=== PATIENT | female | born 1950 | race Caucasian/White ===

== ENCOUNTER 2017-12-03 18:37 | Emergency (ER) | payer OTHER ==
[2017-12-03 18:55] VITALS: BMI 34.9
--- NOTE | 2017-12-03 19:30 | PDOC ---
History of Present Illness - General Chief Complaint: Injury Stated Complaint: FALL/HEAD INJURY Time Seen by Provider: 12/03/17 19:29 History Source: Patient Exam Limitations: No Limitations - History of Present Illness Initial Comments: 12/03/17 20:23 67F [facility] patient from [facility] with pmh of arterial thrombosis of extremities, dm2, gerd, htn, hypothyroidism, Left knee replacement on enoxaparin presents to the ED sent by jossie for evaluation of her head after she bumped it in the bathroom. No visible signs of trauma, no hematoma. Patient denies headache, nausea, vomiting, change in vision, fatigue. pcp: Fabiana Mena Past History - Past Medical History Allergies/Adverse Reactions: Allergies Allergy/AdvReac Type Severity Reaction Status Date / Time JESUS Inhibitors Allergy Intermediate Swelling Verified 12/03/17 18:55 [Jesus Inhibitors] codeine [Codeine] Allergy Intermediate Itching Verified 12/03/17 18:55 propoxyphene napsylate Allergy Intermediate Rash Verified 12/03/17 18:55 [From [facility]] lactose AdvReac Verified 12/03/17 18:55 METAL Allergy Severe Rash Uncoded 12/03/17 18:55 Home Medications: Ambulatory Orders Atenolol [Tenormin -] 25 mg PO DAILY #30 tablet 03/03/15 Furosemide [Lasix -] 40 mg PO DAILY #30 tablet 03/03/15 Levothyroxine [Synthroid -] 25 mcg PO DAILY #30 tablet 03/03/15 Loratadine [Claritin -] 10 mg PO DAILY #30 tablet 03/03/15 Cholecalciferol (Vitamin D3) [Vitamin D3] 2,000 unit PO DAILY 11/19/15 Gabapentin 300 mg PO BID 11/19/15 Insulin Pump/Infus. Set/Meter [Accu-Chek Combo System] 1 each MC ASDIR 11/19/15 Simvastatin [Zocor -] 20 mg PO HS 11/19/15 Docusate Sodium [Colace -] 100 mg PO BID 03/25/16 Brimonidine Tartrate/Timolol [Combigan 0.2%-0.5% Eye Drops] 1 drop OU BID Olopatadine HCl [Pazeo] 1 drop OU DAILY 07/04/16 Omeprazole 20 mg PO DAILY 07/04/16 Oxycodone HCl/Acetaminophen [Percocet 5-325 mg Tablet] 1 tab PO TID PRN MDD 4 Pantoprazole Sodium [Protonix -] 40 mg PO DAILY #30 tablet.ec 07/04/16 Potassium Chloride [Klor-Con M10] 10 meq PO DAILY 07/04/16 Sucralfate [Carafate -] 1 gm PO BID #30 tablet 07/04/16 Anemia: No Asthma: No Cancer: No Cardiac Disorders: No CVA: Yes (1993,2010 with LT sided residual weakness) COPD: No CHF: No Dementia: No Diabetes: Yes (uses insulin pump) GI Disorders: No Disorders: No HTN: Yes Hypercholesterolemia: Yes Liver Disease: No Seizures: No Thyroid Disease: Yes (hypothyroidism) - Surgical History Abdominal Surgery: Yes Appendectomy: No Cardiac Surgery: No Cholecystectomy: No Lung Surgery: No Neurologic Surgery: Yes (Arnold-Chiari Malformation Brain Sx X2 2003,2008) Orthopedic Surgery: Yes (B/L shoulder rotator cuff, Left Total Knee Replacement March 2016) - Immunization History Immunization Up to Date: Yes - Suicide/Smoking/Psychosocial Hx Smoking Status: No Smoking History: Never smoked Have you smoked in the past 12 months: No Number of Cigarettes Smoked Daily: 0 Information on smoking cessation initiated: No Hx Alcohol Use: No Drug/Substance Use Hx: No Substance Use Type: None Hx Substance Use Treatment: No Review of Systems - Review of Systems Able to Perform ROS?: Yes Is the patient limited Tajik proficient: No Constitutional: No: Symptoms Reported HEENTM: No: Symptoms Reported Respiratory: No: Symptoms reported Cardiac (ROS): No: Symptoms Reported ABD/GI: No: Symptoms Reported : No: Symptoms Reported Musculoskeletal: No: Symptoms Reported Integumentary: No: Symptoms Reported All Other Systems: Reviewed and Negative *Physical Exam - Vital Signs Last Vital Signs Temp Pulse Resp BP Pulse Ox 97.9 F 80 12 108/70 98 12/03/17 18:40 12/03/17 18:40 12/03/17 18:40 12/03/17 18:40 12/03/17 18:40 - Physical Exam General Appearance: Yes: Nourished, Appropriately Dressed. No: Apparent Distress HEENT: positive: EOMI, DENY, Normal ENT Inspection Respiratory/Chest: positive: Lungs Clear, Normal Breath Sounds. negative: Chest Tender, Respiratory Distress Cardiovascular: positive: Regular Rhythm, Regular Rate, S1, S2 Gastrointestinal/Abdominal: positive: Normal Bowel Sounds, Flat, Soft. negative : Tender Musculoskeletal: positive: Normal Inspection. negative: CVA Tenderness Extremity: positive: Normal Capillary Refill, Normal Inspection Integumentary: positive: Normal Color, Dry, Warm Neurologic: positive: Fully Oriented, Alert, Normal Mood/Affect Medical Decision Making - Medical Decision Making 12/03/17 21:47 1. No evidence of acute intracranial hemorrhage or acute skull fracture. No mass effects or hydrocephalus. 2. Status post suboccipital craniectomy and resection of the C1 posterior arch. Hypoattenuating extra-axial collection along the margins of the craniectomy as described above, without much mass effect, is essentially unchanged in size since the CT. Patient ok to DC *DC/Admit/Observation/Transfer Diagnosis at time of Disposition: Closed head injury - Discharge Dispostion Disposition: HOME Condition at time of disposition: Fair Admit: No - Referrals Referrals: Sascha Hilliard MD [Primary Care Provider] - - Patient Instructions Printed Discharge Instructions: DI for Closed Head Injury Additional Instructions: Come back to the ER for any new, worsening or concerning symptom such as fatigue , loss of consciousness, or weakness. Follow up with your PCp Dr. Hilliard within the next 3-4 days. - Post Discharge Activity
--- NOTE | 2017-12-03 20:31 | PDOC ---
Attending Attestation - HPI HPI: 12/03/17 20:43 The patient is a 67 year old female, from [facility], with a significant past medical history of diabetes mellitus, hypothyroidism, CVA, hypertension, anemia , who presents to the emergency department for evaluation s/p bumping her head in the bathroom prior to arrival. detention reports state the patient is currently on the blood thinner Enoxaparin secondary to a recent left knee replacement so she was sent to the ED for evaluation. detention reports deny any recent fall or loss of consciousness. She denies any blurry vision or double vision. She denies recent fevers, chills , headache or dizziness. She denies recent nausea, vomit, diarrhea or constipation. She denies recent chest pain or shortness of breath. Allergies: See nursing notes Primary Care Physician: Dr. Mena Documentation prepared by Christian Cheng, acting as medical scientific officer for Randy Guerra MD. <Christian Cheng - Last Filed: 12/03/17 20:43> - Resident Resident Name: Augusto Royal - ED Attending Attestation I have performed the following: I have examined & evaluated the patient, The case was reviewed & discussed with the resident, I agree w/resident's findings & plan, Exceptions are as noted - Physicial Exam PE: 12/03/17 21:58 *Physical Exam General Appearance: Yes: Appropriately Dressed. No: Apparent Distress, Intoxicated HEENT: positive: EOMI, DENY, Normal ENT Inspection, Normal Voice, TMs Normal, Pharynx Normal. negative: Pale Conjunctivae, Photophobia, Scleral Icterus (R), Scleral Icterus (L) Neck: positive: Trachea midline, Normal Thyroid, Supple. negative: Tender, Rigid, Carotid bruit, Stridor, Lymphadenopathy (R), Lymphadenopathy (L), Thyromegaly Respiratory/Chest: positive: Lungs Clear, Normal Breath Sounds. negative: Chest Tender, Respiratory Distress, Accessory Muscle Use, Labored Respiration, RES, Crackles, Rales, Rhonchi, Stridor, Wheezing, Dullness Cardiovascular: positive: Regular Rhythm, Regular Rate, S1, S2. negative: Edema , JVD, Murmur, Bradycardia, Tachycardia Vascular Pulses: Dorsalis-Pedis (R): 2+, Doralis-Pedis (L): 2+ Gastrointestinal/Abdominal: positive: Normal Bowel Sounds, Flat, Soft. negative : Tender, Organomegaly, Pulsatile Mass, Increased Bowel Sounds, Decreased BS, Distended, Guarding, Rebound, Hernia, Hepatomegaly, Spleenomegaly Lymphatic: negative: Adenopathy, Tenderness Musculoskeletal: positive: slight left knee swelling anteriorly, well-healed scar, clean and intact negative: CVA Tenderness, Decreased Range of Motion Extremity: positive: Normal Capillary Refill, Normal Inspection, Normal Range of Motion, Pelvis Stable. negative: Tender, Pedal Edema, Swelling, Erythema Integumentary: positive: Normal Color, Dry, Warm. negative: Cyanotic, Erythema , Jaundice, Rash Neurologic: positive: refrigeration installer II-XII NML intact, Fully Oriented, Alert, Normal Mood/ Affect, Motor Strength 5/5. negative: EOM Palsy, Facial Droop, Sensory Deficit - Medical Decision Making 12/03/17 22:00 pt treated and released <Randy Guerra - Last Filed: 12/03/17 22:00>
[2017-12-03 23:18] VITALS: BP 132/80; PULSE 82; TEMP 97.2
== END 2017-12-03 23:16 | disposition home or self-care (01) ==
LOC: JER 18:37
DX: S09.90XA Unspecified injury of head, initial encounter (principal); X58.XXXA Exposure to other specified factors, initial encounter; Y93.89 Activity, other specified; Y92.129 Unspecified place in nursing home as the place of occurrence of the external cause; I10 Essential (primary) hypertension; E11.9 Type 2 diabetes mellitus without complications; Z79.4 Long term (current) use of insulin; E78.00 Pure hypercholesterolemia, unspecified; E03.9 Hypothyroidism, unspecified
CPT/HCPCS: 70450-TC; 99282-25

== ENCOUNTER 2020-12-12 10:21 | Inpatient (IN) | payer OTHER ==
[2020-12-12] MEDS ORDERED: DEXAMETHASONE SOD PHOSPHATE 4 MG/1 ML VIAL IVPUSH ONE (11:00)
[2020-12-12] MEDS ORDERED: DEXAMETHASONE SOD PHOSPHATE 10 MG/1 ML VIAL ONE (11:02)
[2020-12-12] MEDS ORDERED: NYSTATIN 500,000 UNITS/5 ML SUSPENSION PO ONE (11:15)
[2020-12-12 11:44] LABS: VENOUS BASE EXCESS -6.9 mmol/L (-2-2); VENOUS PCO2 45.2 mmHg (38-52); VENOUS PH 7.263 (7.310-7.410)
[2020-12-12 11:46] LABS: BASO % 0.3 % (0-2.0); HEMATOCRIT 37.6 % (32.4-45.2); HEMOGLOBIN 12.6 GM/dL (10.7-15.3); LYMPH % 9.1 % (8-40); MCH 29.2 pg (25.7-33.7); MCHC 33.5 g/dl (32.0-36.0); MEAN CELL VOLUME 87.1 fl (80-96); MEAN PLT VOLUME 9.5 fl (7.5-11.1); MONO % 5.6 % (3.8-10.2); PLATELET COUNT 225 K/MM3 (134-434); RBC 4.32 M/mm3 (3.60-5.2); RDW 14.7 % (11.6-15.6); WHITE BLOOD COUNT 6.4 K/mm3 (4.0-10.0)
[2020-12-12 11:54] LABS: LACTIC ACID 2.9 mmol/L (0.4-2.0)
[2020-12-12 12:07] LABS: INR 1.41 (0.83-1.09); PROTHROMBIN TIME (PATIENT) 17.2 SEC (9.7-13.0)
[2020-12-12 12:10] LABS: ACTIVATED PTT 41.5 SECONDS (25.2-36.5)
[2020-12-12 12:13] LABS: CHLORIDE 106 mmol/L (98-107); SODIUM 137 mmol/L (136-145)
[2020-12-12 12:15] LABS: CALCIUM 8.8 mg/dL (8.5-10.1); CO2 19 mmol/L (21-32)
[2020-12-12 12:16] LABS: ALBUMIN 3.2 g/dl (3.4-5.0); BLOOD UREA NITROGEN 47.4 mg/dL (7-18)
[2020-12-12 12:18] LABS: BILIRUBIN,DIRECT 0.1 mg/dL (0.0-0.2); SGPT/ALT 43 U/L (13-61)
[2020-12-12] MEDS ORDERED: SODIUM CHLORIDE 500 ML IV STA ×3 (12:18→15:24)
[2020-12-12 12:19] LABS: CREATININE 2.6 mg/dL (0.55-1.3); SGOT/AST 127 U/L (15-37)
[2020-12-12 12:20] LABS: BILIRUBIN,TOTAL 0.6 mg/dL (0.2-1)
[2020-12-12 12:21] LABS: ALK PHOS 76 U/L (45-117)
[2020-12-12 12:24] LABS: TOT PROT 8.1 g/dl (6.4-8.2)
[2020-12-12 12:55] LABS: ANION GAP 12 MMOL/L (8-16); GLUCOSE,RANDOM 521 mg/dL (74-106); LDH 1107 U/L (84-246); POTASSIUM 6.4 mmol/L (3.5-5.1)
[2020-12-12] MEDS ORDERED: INSULIN REGULAR HUMAN 100 UNITS/ML *VIAL SQ ONE (13:01)
[2020-12-12 13:26] LABS: EPI CELLS >36 /uL (0-25.1); HYALINE CASTS 4 /uL (0-3.1); URINE APPEARANCE TURBID; URINE BACTERIA 690 /uL (0-1359); URINE BILIRUBIN NEGATIVE (NEGATIVE); URINE COLOR YELLOW; URINE GLUCOSE (UA) 3+ (NEGATIVE); URINE KETONE 1+ (NEGATIVE); URINE LEUK ESTERASE 1+ (NEGATIVE); URINE NITRITE NEGATIVE (NEGATIVE); URINE PROTEIN 2+ (NEGATIVE); URINE RBC 14 /uL (0-23.9); URINE UROBILINOGEN 0.2 mg/dL (0.2-1.0); URINE WBC 404 /uL (0-25.8)
[2020-12-12] MEDS ORDERED: oxyCODONE HCL 5 MG TABLET PO ONE (13:42)
[2020-12-12] MEDS ORDERED: ACETAMINOPHEN 325 MG TABLET (FP) PO ONE (13:42)
[2020-12-12] MEDS ORDERED: ACETAMINOPHEN 325 MG TABLET (FP) ONE (14:03)
[2020-12-12] MEDS ORDERED: oxyCODONE HCL 5 MG TABLET ONE (14:03)
[2020-12-12 14:27] LABS: YEAST NON SEEN (NEGATIVE)
[2020-12-12] MEDS ORDERED: ALBUTEROL SO4 HFA INHALER IH ONE ×2 (16:23→20:56)
[2020-12-12 16:30] LABS: POTASSIUM 4.9 mmol/L (3.5-5.1)
[2020-12-12 16:33] LABS: BLOOD UREA NITROGEN 46.4 mg/dL (7-18)
[2020-12-12] MEDS: ALBUTEROL SO4 HFA INHALER IH SCH ×2 (16:33→21:00)
[2020-12-12 16:36] LABS: CREATININE 2.4 mg/dL (0.55-1.3)
[2020-12-12 16:38] LABS: BILIRUBIN,TOTAL 0.4 mg/dL (0.2-1); TOT PROT 7.6 g/dl (6.4-8.2)
[2020-12-12 16:47] LABS: LACTIC ACID 3.3 mmol/L (0.4-2.0)
[2020-12-12] MEDS: INSULIN SLIDING SCALE (NOVOLOG) 1 VIAL SQ SCH ×2 (17:00→23:25)
[2020-12-12] MEDS ORDERED: LORazepam 2 MG/ML SDV VIAL IVPUSH ONE (20:52)
[2020-12-12] MEDS ORDERED: morphine CARPU-JECT 2 MG/1 ML DISP.SYRIN IM PRN (20:52)
[2020-12-12 21:48] LABS: ARTERIAL BLD GAS O2 SATURATION 95.4 mmHg (95-98); ARTERIAL BLOOD GAS BASE EXCESS -11.5 mmol/L (-2-2); ARTERIAL BLOOD GAS PO2 89.3 mmHg (80-100); ARTERIAL BLOOD GAS pH 7.233 (7.350-7.450)
[2020-12-12 21:52] LABS: ALLENS TEST POSITIVE
[2020-12-12 21:53] LABS: VENT RATE 14
[2020-12-12] MEDS: ATORVASTATIN CA 10 MG TABLET (FP) PO SCH (23:24)
[2020-12-12] MEDS: HEPARIN NA (PORCINE) 5,000 UNITS/ML 1ML VIAL SQ SCH (23:24)
[2020-12-12] MEDS: GABAPENTIN 300 MG CAPSULE PO SCH (23:25)
[2020-12-12] MEDS: BUDESONIDE/FORMETEROL FUMARATE 160/4.5 mcg INHALER IH SCH (23:38)
[2020-12-13] MEDS: LORazepam 2 MG/ML SDV VIAL IVPUSH ONE ×2 (01:14→01:16)
[2020-12-13] MEDS ORDERED: LORazepam 2 MG/ML SDV VIAL IVPUSH ONE (05:48)
[2020-12-13] MEDS: INSULIN SLIDING SCALE (NOVOLOG) 1 VIAL SQ SCH ×4 (06:22→21:52)
[2020-12-13] MEDS: HEPARIN NA (PORCINE) 5,000 UNITS/ML 1ML VIAL SQ SCH ×3 (06:23→21:52)
[2020-12-13 07:21] LABS: BASO % 0.5 % (0-2.0); HEMATOCRIT 34.6 % (32.4-45.2); HEMOGLOBIN 11.4 GM/dL (10.7-15.3); LYMPH % 6.1 % (8-40); MCH 28.5 pg (25.7-33.7); MEAN CELL VOLUME 86.5 fl (80-96); MEAN PLT VOLUME 9.4 fl (7.5-11.1); NEUT % 88.4 % (42.8-82.8); PLATELET COUNT 244 K/MM3 (134-434); RDW 14.9 % (11.6-15.6); WHITE BLOOD COUNT 8.8 K/mm3 (4.0-10.0)
[2020-12-13 07:38] LABS: CHLORIDE 116 mmol/L (98-107); POTASSIUM 3.9 mmol/L (3.5-5.1); SODIUM 144 mmol/L (136-145)
[2020-12-13 07:59] LABS: ALBUMIN 2.6 g/dl (3.4-5.0); BLOOD UREA NITROGEN 43.5 mg/dL (7-18)
[2020-12-13 08:00] LABS: ANION GAP 12 MMOL/L (8-16); CO2 17 mmol/L (21-32)
[2020-12-13 08:01] LABS: CALCIUM 8.5 mg/dL (8.5-10.1); MAGNESIUM 2.6 mg/dL (1.8-2.4); PHOSPHOROUS 2.7 mg/dL (2.5-4.9); SGOT/AST 92 U/L (15-37); SGPT/ALT 34 U/L (13-61)
[2020-12-13 08:03] LABS: TOT PROT 6.8 g/dl (6.4-8.2)
[2020-12-13 08:04] LABS: ALK PHOS 78 U/L (45-117)
[2020-12-13 08:07] LABS: BILIRUBIN,TOTAL 0.7 mg/dL (0.2-1)
[2020-12-13 08:57] LABS: GLUCOSE,RANDOM 478 mg/dL (74-106)
[2020-12-13] MEDS: ALBUTEROL SO4 HFA INHALER IH SCH ×4 (09:00→21:53)
[2020-12-13] MEDS ORDERED: INSULIN (NOVOLOG) ASPART 100 UNITS/ML 10ML VIAL SQ ONE (09:30)
[2020-12-13] MEDS ORDERED: ENOXAPARIN NA (PORCINE) 40 MG/0.4 ML DISP.SYRIN SQ SCH (10:00)
[2020-12-13] MEDS: ATENOLOL 25 MG TABLET (FP) PO SCH (11:57)
[2020-12-13] MEDS: FUROSEMIDE 40 MG TABLET (FP) PO SCH (11:57)
[2020-12-13] MEDS: GABAPENTIN 300 MG CAPSULE PO SCH ×2 (11:57→21:52)
[2020-12-13] MEDS: LEVOTHYROXINE NA 25 MCG TABLET (FP) PO SCH (11:58)
[2020-12-13] MEDS: BUDESONIDE/FORMETEROL FUMARATE 160/4.5 mcg INHALER IH SCH ×2 (12:02→21:54)
[2020-12-13] MEDS: DEXAMETHASONE SOD PHOSPHATE 4 MG/1 ML VIAL IVPUSH SCH (13:10)
[2020-12-13 15:25] LABS: ANISOCYTOSIS 0; MACROCYTOSIS 0; PLATELET ESTIMATE NORMAL
[2020-12-13] MEDS ORDERED: SODIUM CHLORIDE 1,000 ML IV SCH (18:00)
[2020-12-13] MEDS ORDERED: LIDOCAINE 5% TOPICAL PATCH TP ONE (21:14)
[2020-12-13] MEDS: ATORVASTATIN CA 10 MG TABLET (FP) PO SCH (21:52)
[2020-12-13] MEDS: INSULIN (LEVEMIR) 100 UNITS/ML UNITS SQ SCH (21:53)
[2020-12-13] MEDS: LIDOCAINE PATCH REMOVAL MC SCH (23:59)
[2020-12-14] MEDS: HEPARIN NA (PORCINE) 5,000 UNITS/ML 1ML VIAL SQ SCH ×3 (07:04→22:17)
[2020-12-14] MEDS: INSULIN SLIDING SCALE (NOVOLOG) 1 VIAL SQ SCH ×4 (07:04→22:20)
[2020-12-14] MEDS: INSULIN (LEVEMIR) 100 UNITS/ML UNITS SQ SCH ×2 (07:04→22:18)
[2020-12-14] MEDS: DEXAMETHASONE SOD PHOSPHATE 4 MG/1 ML VIAL IVPUSH SCH (10:43)
[2020-12-14] MEDS: ATENOLOL 25 MG TABLET (FP) PO SCH (10:43)
[2020-12-14] MEDS: GABAPENTIN 300 MG CAPSULE PO SCH ×2 (10:43→22:19)
[2020-12-14] MEDS: LEVOTHYROXINE NA 25 MCG TABLET (FP) PO SCH (10:43)
[2020-12-14] MEDS: FUROSEMIDE 40 MG TABLET (FP) PO SCH (10:43)
[2020-12-14] MEDS: ALBUTEROL SO4 HFA INHALER IH SCH ×4 (10:44→22:18)
[2020-12-14] MEDS: BUDESONIDE/FORMETEROL FUMARATE 160/4.5 mcg INHALER IH SCH ×2 (10:44→22:20)
[2020-12-14] MEDS ORDERED: TOCILIZUMAB (ACTEMRA) 200 MG/10 ML VIAL IVPB ONE (11:15)
[2020-12-14 11:22] LABS: BASO % 0.5 % (0-2.0); HEMATOCRIT 35.1 % (32.4-45.2); HEMOGLOBIN 11.9 GM/dL (10.7-15.3); MCH 28.8 pg (25.7-33.7); MEAN CELL VOLUME 84.7 fl (80-96); MEAN PLT VOLUME 8.8 fl (7.5-11.1); MONO % 8.1 % (3.8-10.2); NEUT % 87.4 % (42.8-82.8); PLATELET COUNT 319 K/MM3 (134-434); RBC 4.14 M/mm3 (3.60-5.2); RDW 14.9 % (11.6-15.6); WHITE BLOOD COUNT 14.4 K/mm3 (4.0-10.0)
[2020-12-14] MEDS ORDERED: TOCILIZUMAB 400 MG, TOCILIZUMAB 200 MG, TOCILIZUMAB 50 MG in SODIUM CHLORIDE 67.5 ML IVPB ONE (12:00)
[2020-12-14 12:37] LABS: CHLORIDE 125 mmol/L (98-107); POTASSIUM 4.1 mmol/L (3.5-5.1); SODIUM 154 mmol/L (136-145)
[2020-12-14 12:53] LABS: ANISOCYTOSIS 0; MACROCYTOSIS 0; OVALOCYTE 1+; PLATELET ESTIMATE NORMAL
[2020-12-14] MEDS: oxyCODONE HCL 5 MG TABLET PO PRN ×2 (16:12→22:18)
[2020-12-14] MEDS: ACETAMINOPHEN 325 MG TABLET (FP) PO PRN (16:14)
[2020-12-14 17:44] LABS: POTASSIUM 3.7 mmol/L (3.5-5.1)
[2020-12-14 18:04] LABS: BLOOD UREA NITROGEN 50.4 mg/dL (7-18); CREATININE 1.6 mg/dL (0.55-1.3)
[2020-12-14] MEDS ORDERED: SODIUM CHLORIDE 0.45% 1,000 ML IV SCH (19:00)
[2020-12-14] MEDS: LIDOCAINE PATCH REMOVAL MC SCH (22:18)
[2020-12-14] MEDS: ATORVASTATIN CA 10 MG TABLET (FP) PO SCH (22:19)
[2020-12-14] MEDS ORDERED: PT OWN MED DRAWER 7, Y5N ONE (22:43)
[2020-12-15] MEDS: INSULIN SLIDING SCALE (NOVOLOG) 1 VIAL SQ SCH ×4 (07:02→22:18)
[2020-12-15] MEDS: HEPARIN NA (PORCINE) 5,000 UNITS/ML 1ML VIAL SQ SCH ×3 (07:02→22:10)
[2020-12-15] MEDS: INSULIN (LEVEMIR) 100 UNITS/ML UNITS SQ SCH ×2 (07:02→22:16)
[2020-12-15 08:09] LABS: BASO % 0.3 % (0-2.0); EOS % 0.1 % (0-4.5); HEMATOCRIT 33.4 % (32.4-45.2); LYMPH % 5.9 % (8-40); MCH 28.1 pg (25.7-33.7); MEAN CELL VOLUME 85.2 fl (80-96); MEAN PLT VOLUME 9.3 fl (7.5-11.1); MONO % 9.2 % (3.8-10.2); NEUT % 84.5 % (42.8-82.8); PLATELET COUNT 299 K/MM3 (134-434); RBC 3.92 M/mm3 (3.60-5.2); RDW 14.8 % (11.6-15.6); WHITE BLOOD COUNT 11.6 K/mm3 (4.0-10.0)
[2020-12-15 08:44] LABS: ALBUMIN 2.6 g/dl (3.4-5.0); BILIRUBIN,TOTAL 0.5 mg/dL (0.2-1); BLOOD UREA NITROGEN 49.9 mg/dL (7-18); CREATININE 1.5 mg/dL (0.55-1.3); MAGNESIUM 2.2 mg/dL (1.8-2.4); POTASSIUM 3.8 mmol/L (3.5-5.1); TOT PROT 7.2 g/dl (6.4-8.2)
[2020-12-15] MEDS: ATENOLOL 25 MG TABLET (FP) PO SCH (09:53)
[2020-12-15] MEDS: ALBUTEROL SO4 HFA INHALER IH SCH ×4 (09:53→20:30)
[2020-12-15] MEDS: DEXAMETHASONE SOD PHOSPHATE 4 MG/1 ML VIAL IVPUSH SCH (09:53)
[2020-12-15] MEDS: LEVOTHYROXINE NA 25 MCG TABLET (FP) PO SCH (09:53)
[2020-12-15] MEDS: GABAPENTIN 300 MG CAPSULE PO SCH ×2 (09:53→22:18)
[2020-12-15] MEDS: BUDESONIDE/FORMETEROL FUMARATE 160/4.5 mcg INHALER IH SCH ×2 (09:54→23:27)
[2020-12-15 10:06] LABS: EPI CELLS 18 /uL (0-25.1); HYALINE CASTS 1 /uL (0-3.1); URINE APPEARANCE CLEAR; URINE BACTERIA 5871 /uL (0-1359); URINE BILIRUBIN NEGATIVE (NEGATIVE); URINE COLOR YELLOW; URINE GLUCOSE (UA) 2+ (NEGATIVE); URINE KETONE NEGATIVE (NEGATIVE); URINE LEUK ESTERASE NEGATIVE (NEGATIVE); URINE NITRITE NEGATIVE (NEGATIVE); URINE PROTEIN 1+ (NEGATIVE); URINE UROBILINOGEN 0.2 mg/dL (0.2-1.0); URINE WBC 14 /uL (0-25.8)
[2020-12-15 11:46] LABS: ANISOCYTOSIS 2+; MACROCYTOSIS 0; OVALOCYTE 2+; PLATELET ESTIMATE NORMAL
[2020-12-15] MEDS ORDERED: DEXTROSE 5%-WATER - 1,000 ML IV SCH (14:45)
[2020-12-15] MEDS ORDERED: REMDESIVIR 200 MG in SODIUM CHLORIDE 210 ML IVPB ONE (15:00)
[2020-12-15] MEDS: DEXTROSE 5%-WATER - 1,000 ML IV SCH (15:14)
[2020-12-15] MEDS ORDERED: LORazepam 2 MG/ML SDV VIAL IVPUSH ONE (22:03)
[2020-12-15] MEDS: LIDOCAINE PATCH REMOVAL MC SCH (22:17)
[2020-12-15] MEDS: ATORVASTATIN CA 10 MG TABLET (FP) PO SCH (22:17)
[2020-12-15] MEDS: ACETAMINOPHEN 325 MG TABLET (FP) PO PRN (22:19)
[2020-12-16] MEDS: HEPARIN NA (PORCINE) 5,000 UNITS/ML 1ML VIAL SQ SCH ×2 (06:54→13:08)
[2020-12-16] MEDS: INSULIN (LEVEMIR) 100 UNITS/ML UNITS SQ SCH ×2 (06:54→21:54)
[2020-12-16] MEDS: INSULIN SLIDING SCALE (NOVOLOG) 1 VIAL SQ SCH ×4 (06:55→21:54)
[2020-12-16 07:50] LABS: BASO % 0.2 % (0-2.0); HEMOGLOBIN 11.3 GM/dL (10.7-15.3); LYMPH % 5.3 % (8-40); MCH 28.5 pg (25.7-33.7); MCHC 33.1 g/dl (32.0-36.0); MEAN CELL VOLUME 85.9 fl (80-96); MEAN PLT VOLUME 9.3 fl (7.5-11.1); MONO % 6.8 % (3.8-10.2); NEUT % 87.7 % (42.8-82.8); PLATELET COUNT 276 K/MM3 (134-434); RBC 3.96 M/mm3 (3.60-5.2); RDW 14.9 % (11.6-15.6); WHITE BLOOD COUNT 9.8 K/mm3 (4.0-10.0)
[2020-12-16 09:09] LABS: POTASSIUM 3.7 mmol/L (3.5-5.1)
[2020-12-16 09:11] LABS: ALBUMIN 2.5 g/dl (3.4-5.0); CALCIUM 8.2 mg/dL (8.5-10.1)
[2020-12-16 09:12] LABS: BLOOD UREA NITROGEN 32.5 mg/dL (7-18); MAGNESIUM 1.8 mg/dL (1.8-2.4)
[2020-12-16 09:15] LABS: BILIRUBIN,TOTAL 0.6 mg/dL (0.2-1); CREATININE 1.3 mg/dL (0.55-1.3); TOT PROT 6.3 g/dl (6.4-8.2)
[2020-12-16] MEDS: ALBUTEROL SO4 HFA INHALER IH SCH ×4 (09:20→21:55)
[2020-12-16] MEDS: DEXAMETHASONE SOD PHOSPHATE 4 MG/1 ML VIAL IVPUSH SCH (09:20)
[2020-12-16] MEDS: ATENOLOL 25 MG TABLET (FP) PO SCH (09:20)
[2020-12-16] MEDS: BUDESONIDE/FORMETEROL FUMARATE 160/4.5 mcg INHALER IH SCH ×2 (09:20→21:55)
[2020-12-16] MEDS: GABAPENTIN 300 MG CAPSULE PO SCH ×2 (09:20→21:49)
[2020-12-16] MEDS: LEVOTHYROXINE NA 25 MCG TABLET (FP) PO SCH (09:20)
[2020-12-16 12:16] LABS: ANISOCYTOSIS 1+; MACROCYTOSIS 0; OVALOCYTE 1+; PLATELET ESTIMATE NORMAL; TEAR DROP CELLS 1+
[2020-12-16] MEDS: DEXTROSE 5%-WATER - 1,000 ML IV SCH (15:00)
[2020-12-16] MEDS: REMDESIVIR 100 MG in SODIUM CHLORIDE 230 ML IVPB SCH (16:44)
[2020-12-16] MEDS: APIXABAN 5 MG TABLET PO SCH (21:49)
[2020-12-16] MEDS: ATORVASTATIN CA 10 MG TABLET (FP) PO SCH (21:49)
[2020-12-16] MEDS: LORazepam 0.5 MG TABLET PO PRN (23:30)
[2020-12-17] MEDS: LORazepam 0.5 MG TABLET PO PRN ×2 (05:50→23:44)
[2020-12-17] MEDS: INSULIN SLIDING SCALE (NOVOLOG) 1 VIAL SQ SCH ×4 (07:19→21:09)
[2020-12-17] MEDS: INSULIN (LEVEMIR) 100 UNITS/ML UNITS SQ SCH ×2 (07:19→21:08)
[2020-12-17] MEDS ORDERED: PT OWN MED DRAWER 7, Y5N ONE (10:01)
[2020-12-17] MEDS: DEXAMETHASONE SOD PHOSPHATE 4 MG/1 ML VIAL IVPUSH SCH (10:02)
[2020-12-17] MEDS: BUDESONIDE/FORMETEROL FUMARATE 160/4.5 mcg INHALER IH SCH ×2 (10:03→21:21)
[2020-12-17] MEDS: APIXABAN 5 MG TABLET PO SCH ×2 (10:03→21:07)
[2020-12-17] MEDS: GABAPENTIN 300 MG CAPSULE PO SCH ×2 (10:03→21:07)
[2020-12-17] MEDS: ATENOLOL 25 MG TABLET (FP) PO SCH (10:03)
[2020-12-17] MEDS: LEVOTHYROXINE NA 25 MCG TABLET (FP) PO SCH (10:03)
[2020-12-17] MEDS: DEXTROSE 5%-WATER - 1,000 ML IV SCH (10:17)
[2020-12-17 11:43] LABS: BASO % 0.1 % (0-2.0); EOS % 0.2 % (0-4.5); HEMATOCRIT 35.6 % (32.4-45.2); HEMOGLOBIN 11.8 GM/dL (10.7-15.3); MCH 28.5 pg (25.7-33.7); MCHC 33.2 g/dl (32.0-36.0); MEAN CELL VOLUME 85.9 fl (80-96); MEAN PLT VOLUME 9.3 fl (7.5-11.1); MONO % 3.7 % (3.8-10.2); PLATELET COUNT 236 K/MM3 (134-434); RBC 4.15 M/mm3 (3.60-5.2); RDW 14.5 % (11.6-15.6); WHITE BLOOD COUNT 6.7 K/mm3 (4.0-10.0)
[2020-12-17 12:01] LABS: CHLORIDE 107 mmol/L (98-107); SODIUM 139 mmol/L (136-145)
[2020-12-17 12:03] LABS: ALBUMIN 2.4 g/dl (3.4-5.0); CALCIUM 8.1 mg/dL (8.5-10.1); CO2 23 mmol/L (21-32); GLUCOSE,RANDOM 337 mg/dL (74-106); MAGNESIUM 1.5 mg/dL (1.8-2.4)
[2020-12-17 12:07] LABS: CREATININE 1.2 mg/dL (0.55-1.3); SGOT/AST 74 U/L (15-37); SGPT/ALT 36 U/L (13-61)
[2020-12-17 12:08] LABS: BILIRUBIN,TOTAL 0.6 mg/dL (0.2-1); TOT PROT 6.1 g/dl (6.4-8.2)
[2020-12-17 12:09] LABS: ALK PHOS 163 U/L (45-117)
[2020-12-17 12:19] LABS: ANION GAP 9 MMOL/L (8-16)
[2020-12-17 12:26] LABS: POTASSIUM 2.9 mmol/L (3.5-5.1)
[2020-12-17] MEDS: KCL 10 MEQ IVPB 10 MEQ/100 ML INFUS.BAG IVPB SCH ×2 (12:35→14:21)
[2020-12-17] MEDS ORDERED: POTASSIUM CHLORIDE TABS 20 MEQ TABLET.ER (FP) PO ONE (12:45)
[2020-12-17] MEDS ORDERED: MAGNESIUM SULF 50% (8.12 MEQ/2 ML-1 GM VIAL) IVPB ONE (13:51)
[2020-12-17] MEDS ORDERED: MAGNESIUM OXIDE 400 MG TABLET (FP) PO ONE (13:56)
[2020-12-17] MEDS: ALBUTEROL SO4 HFA INHALER IH SCH ×3 (13:59→21:08)
[2020-12-17 14:39] LABS: ANISOCYTOSIS 1+; MACROCYTOSIS 0; OVALOCYTE 1+; PLATELET ESTIMATE NORMAL; TEAR DROP CELLS 1+
[2020-12-17] MEDS: REMDESIVIR 100 MG in SODIUM CHLORIDE 230 ML IVPB SCH (16:04)
[2020-12-17] MEDS: POTASSIUM CHLORIDE 20 MEQ in DEXTROSE 5%-WATER - 1,000 ML IV SCH (17:15)
[2020-12-17] MEDS: ATORVASTATIN CA 10 MG TABLET (FP) PO SCH (21:08)
[2020-12-17] MEDS: oxyCODONE HCL 5 MG TABLET PO PRN (23:56)
[2020-12-18] MEDS: POTASSIUM CHLORIDE 20 MEQ in DEXTROSE 5%-WATER - 1,000 ML IV SCH ×3 (04:15→17:11)
[2020-12-18] MEDS: ACETAMINOPHEN 325 MG TABLET (FP) PO PRN (05:18)
[2020-12-18] MEDS: oxyCODONE HCL 5 MG TABLET PO PRN (06:02)
[2020-12-18] MEDS: INSULIN SLIDING SCALE (NOVOLOG) 1 VIAL SQ SCH ×4 (06:38→21:21)
[2020-12-18] MEDS: INSULIN (LEVEMIR) 100 UNITS/ML UNITS SQ SCH ×2 (06:38→21:21)
[2020-12-18 06:50] LABS: BASO % 0.1 % (0-2.0); EOS % 0.6 % (0-4.5); HEMATOCRIT 37.7 % (32.4-45.2); HEMOGLOBIN 12.7 GM/dL (10.7-15.3); LYMPH % 7.1 % (8-40); MCH 28.4 pg (25.7-33.7); MCHC 33.7 g/dl (32.0-36.0); MEAN CELL VOLUME 84.3 fl (80-96); MEAN PLT VOLUME 9.3 fl (7.5-11.1); MONO % 5.4 % (3.8-10.2); NEUT % 86.8 % (42.8-82.8); PLATELET COUNT 263 K/MM3 (134-434); RBC 4.47 M/mm3 (3.60-5.2); RDW 14.5 % (11.6-15.6); WHITE BLOOD COUNT 6.9 K/mm3 (4.0-10.0)
[2020-12-18 07:05] LABS: CHLORIDE 108 mmol/L (98-107); POTASSIUM 3.4 mmol/L (3.5-5.1); SODIUM 140 mmol/L (136-145)
[2020-12-18 07:10] LABS: ALBUMIN 2.5 g/dl (3.4-5.0); ANION GAP 7 MMOL/L (8-16); BLOOD UREA NITROGEN 21.2 mg/dL (7-18); CO2 25 mmol/L (21-32); GLUCOSE,RANDOM 236 mg/dL (74-106)
[2020-12-18 07:11] LABS: MAGNESIUM 2.1 mg/dL (1.8-2.4)
[2020-12-18 07:14] LABS: BILIRUBIN,TOTAL 0.7 mg/dL (0.2-1); CREATININE 1.1 mg/dL (0.55-1.3); PHOSPHOROUS 3.3 mg/dL (2.5-4.9); SGOT/AST 60 U/L (15-37); SGPT/ALT 37 U/L (13-61); TOT PROT 6.4 g/dl (6.4-8.2)
[2020-12-18 07:17] LABS: ALK PHOS 166 U/L (45-117)
[2020-12-18] MEDS ORDERED: PT OWN MED DRAWER 7, Y5N ONE (07:46)
[2020-12-18] MEDS ORDERED: INSULIN (NOVOLOG) ASPART 100 UNITS/ML 10ML VIAL ONE ×2 (07:46→12:12)
[2020-12-18] MEDS ORDERED: INSULIN (LEVEMIR) 100 UNITS/ML UNITS SQ ONE (07:47)
[2020-12-18] MEDS ORDERED: POTASSIUM CHLORIDE TABS 20 MEQ TABLET.ER (FP) PO ONE (08:37)
[2020-12-18] MEDS: ALBUTEROL SO4 HFA INHALER IH SCH ×4 (08:45→21:05)
[2020-12-18] MEDS: GABAPENTIN 300 MG CAPSULE PO SCH ×2 (10:03→21:05)
[2020-12-18] MEDS: ATENOLOL 25 MG TABLET (FP) PO SCH (10:03)
[2020-12-18] MEDS: KCL 10 MEQ IVPB 10 MEQ/100 ML INFUS.BAG IVPB SCH ×2 (10:03→11:15)
[2020-12-18] MEDS: DEXAMETHASONE SOD PHOSPHATE 4 MG/1 ML VIAL IVPUSH SCH (10:03)
[2020-12-18] MEDS: APIXABAN 5 MG TABLET PO SCH ×2 (10:03→21:05)
[2020-12-18] MEDS: BUDESONIDE/FORMETEROL FUMARATE 160/4.5 mcg INHALER IH SCH ×2 (10:03→21:05)
[2020-12-18] MEDS: LEVOTHYROXINE NA 25 MCG TABLET (FP) PO SCH (10:03)
[2020-12-18] MEDS: REMDESIVIR 100 MG in SODIUM CHLORIDE 230 ML IVPB SCH (14:49)
[2020-12-18] MEDS: ATORVASTATIN CA 10 MG TABLET (FP) PO SCH (21:05)
[2020-12-18] MEDS: LORazepam 0.5 MG TABLET PO PRN (21:27)
[2020-12-19] MEDS: oxyCODONE HCL 5 MG TABLET PO PRN (02:03)
[2020-12-19] MEDS ORDERED: INSULIN (NOVOLOG) ASPART 100 UNITS/ML 10ML VIAL ONE (05:00)
[2020-12-19] MEDS: INSULIN SLIDING SCALE (NOVOLOG) 1 VIAL SQ SCH ×4 (06:36→22:54)
[2020-12-19] MEDS: INSULIN (LEVEMIR) 100 UNITS/ML UNITS SQ SCH ×2 (06:36→22:53)
[2020-12-19] MEDS: POTASSIUM CHLORIDE 20 MEQ in DEXTROSE 5%-WATER - 1,000 ML IV SCH (06:56)
[2020-12-19 07:45] LABS: BASO % 0.2 % (0-2.0); EOS % 1.1 % (0-4.5); HEMATOCRIT 39.4 % (32.4-45.2); HEMOGLOBIN 13.3 GM/dL (10.7-15.3); LYMPH % 5.8 % (8-40); MCH 28.8 pg (25.7-33.7); MCHC 33.8 g/dl (32.0-36.0); MEAN CELL VOLUME 85.2 fl (80-96); MEAN PLT VOLUME 10.1 fl (7.5-11.1); MONO % 5.8 % (3.8-10.2); NEUT % 87.1 % (42.8-82.8); PLATELET COUNT 273 K/MM3 (134-434); POTASSIUM 3.8 mmol/L (3.5-5.1); RBC 4.62 M/mm3 (3.60-5.2); RDW 14.2 % (11.6-15.6); WHITE BLOOD COUNT 9.6 K/mm3 (4.0-10.0)
[2020-12-19 07:52] LABS: ALBUMIN 2.8 g/dl (3.4-5.0); CALCIUM 8.4 mg/dL (8.5-10.1)
[2020-12-19 07:53] LABS: BLOOD UREA NITROGEN 20.8 mg/dL (7-18)
[2020-12-19 07:55] LABS: BILIRUBIN,TOTAL 0.7 mg/dL (0.2-1); MAGNESIUM 1.8 mg/dL (1.8-2.4); TOT PROT 6.6 g/dl (6.4-8.2)
[2020-12-19 07:56] LABS: CREATININE 1.1 mg/dL (0.55-1.3)
[2020-12-19] MEDS ORDERED: POTASSIUM CHLORIDE TABS 20 MEQ TABLET.ER (FP) PO ONE (08:10)
[2020-12-19] MEDS ORDERED: MAGNESIUM OXIDE 400 MG TABLET (FP) PO ONE (08:12)
[2020-12-19] MEDS: LEVOTHYROXINE NA 25 MCG TABLET (FP) PO SCH (10:13)
[2020-12-19] MEDS: APIXABAN 5 MG TABLET PO SCH ×2 (10:14→22:53)
[2020-12-19] MEDS: GABAPENTIN 300 MG CAPSULE PO SCH ×2 (10:14→22:53)
[2020-12-19] MEDS: ALBUTEROL SO4 HFA INHALER IH SCH ×4 (10:14→22:54)
[2020-12-19] MEDS: BUDESONIDE/FORMETEROL FUMARATE 160/4.5 mcg INHALER IH SCH ×2 (10:14→22:54)
[2020-12-19] MEDS: ATENOLOL 25 MG TABLET (FP) PO SCH (10:14)
[2020-12-19] MEDS: FAMOTIDINE 20 MG TABLET PO SCH ×2 (10:14→22:53)
[2020-12-19] MEDS: amLODIPine BESYLATE 2.5 MG TABLET (FP) PO SCH (10:14)
[2020-12-19] MEDS: DEXAMETHASONE SOD PHOSPHATE 4 MG/1 ML VIAL IVPUSH SCH (10:14)
[2020-12-19] MEDS: REMDESIVIR 100 MG in SODIUM CHLORIDE 230 ML IVPB SCH (14:50)
[2020-12-19 15:18] LABS: ANISOCYTOSIS 0; MACROCYTOSIS 0; OVALOCYTE 1+; PLATELET ESTIMATE NORMAL
[2020-12-19] MEDS: AMINO ACIDS/PROTEIN HYDROLYS 30 ML LIQUID.PKT PO SCH (17:17)
[2020-12-19] MEDS: LORazepam 0.5 MG TABLET PO PRN (22:53)
[2020-12-19] MEDS: ATORVASTATIN CA 10 MG TABLET (FP) PO SCH (22:53)
[2020-12-20] MEDS: INSULIN SLIDING SCALE (NOVOLOG) 1 VIAL SQ SCH ×4 (07:01→22:05)
[2020-12-20] MEDS: INSULIN (LEVEMIR) 100 UNITS/ML UNITS SQ SCH ×2 (07:02→22:05)
[2020-12-20 07:47] LABS: POTASSIUM 4.4 mmol/L (3.5-5.1)
[2020-12-20 07:50] LABS: ALBUMIN 3.1 g/dl (3.4-5.0); BLOOD UREA NITROGEN 29.6 mg/dL (7-18); MAGNESIUM 2.3 mg/dL (1.8-2.4)
[2020-12-20 07:53] LABS: CREATININE 1.1 mg/dL (0.55-1.3)
[2020-12-20 07:54] LABS: BILIRUBIN,TOTAL 0.8 mg/dL (0.2-1); TOT PROT 7.3 g/dl (6.4-8.2)
[2020-12-20] MEDS ORDERED: INSULIN (NOVOLOG) ASPART 100 UNITS/ML 10ML VIAL ONE (07:54)
[2020-12-20 08:02] LABS: CALCIUM 9.7 mg/dL (8.5-10.1)
[2020-12-20 08:45] LABS: BASO % 0.2 % (0-2.0); EOS % 0.1 % (0-4.5); HEMATOCRIT 45.7 % (32.4-45.2); HEMOGLOBIN 15.2 GM/dL (10.7-15.3); LYMPH % 2.5 % (8-40); MCH 28.4 pg (25.7-33.7); MCHC 33.3 g/dl (32.0-36.0); MEAN CELL VOLUME 85.3 fl (80-96); MEAN PLT VOLUME 10.6 fl (7.5-11.1); MONO % 5.8 % (3.8-10.2); NEUT % 91.4 % (42.8-82.8); PLATELET COUNT 311 K/MM3 (134-434); RBC 5.36 M/mm3 (3.60-5.2); RDW 14.7 % (11.6-15.6); WHITE BLOOD COUNT 19.1 K/mm3 (4.0-10.0)
[2020-12-20 09:28] LABS: ANISOCYTOSIS 1+; MACROCYTOSIS 0; PLATELET ESTIMATE NORMAL
[2020-12-20] MEDS: ALBUTEROL SO4 HFA INHALER IH SCH ×4 (10:57→22:05)
[2020-12-20] MEDS: AMINO ACIDS/PROTEIN HYDROLYS 30 ML LIQUID.PKT PO SCH ×2 (10:57→17:44)
[2020-12-20] MEDS: BUDESONIDE/FORMETEROL FUMARATE 160/4.5 mcg INHALER IH SCH ×2 (10:57→22:05)
[2020-12-20] MEDS: GABAPENTIN 300 MG CAPSULE PO SCH ×2 (10:57→22:05)
[2020-12-20] MEDS: DEXAMETHASONE SOD PHOSPHATE 4 MG/1 ML VIAL IVPUSH SCH (10:57)
[2020-12-20] MEDS: ATENOLOL 25 MG TABLET (FP) PO SCH (10:58)
[2020-12-20] MEDS: APIXABAN 5 MG TABLET PO SCH ×2 (10:58→22:05)
[2020-12-20] MEDS: LEVOTHYROXINE NA 25 MCG TABLET (FP) PO SCH (10:58)
[2020-12-20] MEDS: FAMOTIDINE 20 MG TABLET PO SCH ×2 (10:59→22:05)
[2020-12-20] MEDS: amLODIPine BESYLATE 2.5 MG TABLET (FP) PO SCH (10:59)
[2020-12-20] MEDS ORDERED: DEXTROSE 5%-WATER - 1,000 ML IV SCH (17:15)
[2020-12-20] MEDS ORDERED: DEXTROSE 5%-WATER - 1,000 ML with POTASSIUM CHLORIDE 10 MEQ IV SCH (17:17)
[2020-12-20] MEDS: DEXTROSE 5%-WATER - 1,000 ML with POTASSIUM CHLORIDE 10 MEQ IV SCH (17:55)
[2020-12-20] MEDS: ATORVASTATIN CA 10 MG TABLET (FP) PO SCH (22:05)
[2020-12-20] MEDS: SODIUM BICARBONATE 650 MG TABLET PO SCH (22:05)
[2020-12-21] MEDS: INSULIN (LEVEMIR) 100 UNITS/ML UNITS SQ SCH ×2 (06:29→21:23)
[2020-12-21] MEDS: DEXTROSE 5%-WATER - 1,000 ML with POTASSIUM CHLORIDE 10 MEQ IV SCH ×2 (06:29→17:26)
[2020-12-21] MEDS: INSULIN SLIDING SCALE (NOVOLOG) 1 VIAL SQ SCH ×4 (06:29→21:23)
[2020-12-21] MEDS ORDERED: INSULIN (NOVOLOG) ASPART 100 UNITS/ML 10ML VIAL ONE (07:22)
[2020-12-21 07:56] LABS: BASO % 0.3 % (0-2.0); HEMATOCRIT 43.6 % (32.4-45.2); HEMOGLOBIN 14.4 GM/dL (10.7-15.3); LYMPH % 1.5 % (8-40); MCH 28.3 pg (25.7-33.7); MCHC 32.9 g/dl (32.0-36.0); MEAN PLT VOLUME 11.1 fl (7.5-11.1); MONO % 4.7 % (3.8-10.2); NEUT % 93.5 % (42.8-82.8); PLATELET COUNT 308 K/MM3 (134-434); RBC 5.07 M/mm3 (3.60-5.2); RDW 14.8 % (11.6-15.6); WHITE BLOOD COUNT 29.5 K/mm3 (4.0-10.0)
[2020-12-21 08:14] LABS: POTASSIUM 4.4 mmol/L (3.5-5.1)
[2020-12-21 08:16] LABS: CALCIUM 9.7 mg/dL (8.5-10.1)
[2020-12-21 08:17] LABS: ALBUMIN 2.9 g/dl (3.4-5.0); BLOOD UREA NITROGEN 43.6 mg/dL (7-18); MAGNESIUM 2.6 mg/dL (1.8-2.4)
[2020-12-21 08:20] LABS: CREATININE 1.5 mg/dL (0.55-1.3)
[2020-12-21 08:22] LABS: BILIRUBIN,TOTAL 0.8 mg/dL (0.2-1); TOT PROT 6.8 g/dl (6.4-8.2)
[2020-12-21] MEDS: ALBUTEROL SO4 HFA INHALER IH SCH ×4 (10:44→21:24)
[2020-12-21] MEDS: DEXAMETHASONE SOD PHOSPHATE 4 MG/1 ML VIAL IVPUSH SCH (10:45)
[2020-12-21] MEDS: GABAPENTIN 300 MG CAPSULE PO SCH ×2 (10:45→21:23)
[2020-12-21] MEDS: APIXABAN 5 MG TABLET PO SCH ×2 (10:45→21:23)
[2020-12-21] MEDS: LEVOTHYROXINE NA 25 MCG TABLET (FP) PO SCH (10:45)
[2020-12-21] MEDS: amLODIPine BESYLATE 2.5 MG TABLET (FP) PO SCH (10:45)
[2020-12-21] MEDS: AMINO ACIDS/PROTEIN HYDROLYS 30 ML LIQUID.PKT PO SCH ×2 (10:45→17:26)
[2020-12-21] MEDS: FAMOTIDINE 20 MG TABLET PO SCH ×2 (10:45→21:23)
[2020-12-21] MEDS: SODIUM BICARBONATE 650 MG TABLET PO SCH ×2 (10:45→21:23)
[2020-12-21] MEDS: ATENOLOL 25 MG TABLET (FP) PO SCH (10:45)
[2020-12-21] MEDS: BUDESONIDE/FORMETEROL FUMARATE 160/4.5 mcg INHALER IH SCH ×2 (10:46→21:24)
[2020-12-21] MEDS ORDERED: PT OWN MED DRAWER 7, Y5N ONE (11:31)
[2020-12-21 11:47] LABS: ANISOCYTOSIS 1+; MACROCYTOSIS 0; OVALOCYTE 1+; PLATELET ESTIMATE NORMAL; TEAR DROP CELLS 1+
[2020-12-21] MEDS ORDERED: cefTRIAXone SODIUM 1 GM VIAL ONE (14:08)
[2020-12-21] MEDS ORDERED: DEXTROSE 5%-WATER - 50 ML IVPB ONE (14:08)
[2020-12-21] MEDS: CEFTRIAXONE 1 GM in DEXTROSE 5%-WATER - 50 ML IVPB SCH (14:11)
[2020-12-21] MEDS: AMINO ACIDS 4.25%/D5W 1,000 ML IV SCH (17:25)
[2020-12-21 20:11] LABS: EPI CELLS 8 /uL (0-25.1); HYALINE CASTS 0 /uL (0-3.1); PH,URINE 5.5 (5.0-8.0); URINE APPEARANCE CLOUDY; URINE BACTERIA 762 /uL (0-1359); URINE BILIRUBIN NEGATIVE (NEGATIVE); URINE COLOR YELLOW; URINE GLUCOSE (UA) 3+ (NEGATIVE); URINE KETONE TRACE (NEGATIVE); URINE LEUK ESTERASE 1+ (NEGATIVE); URINE NITRITE NEGATIVE (NEGATIVE); URINE PROTEIN 2+ (NEGATIVE); URINE RBC 44 /uL (0-23.9); URINE UROBILINOGEN 0.2 mg/dL (0.2-1.0); URINE WBC 142 /uL (0-25.8)
[2020-12-21 20:34] LABS: YEAST NEGATIVE (NEGATIVE)
[2020-12-21] MEDS: ATORVASTATIN CA 10 MG TABLET (FP) PO SCH (21:23)
[2020-12-22] MEDS: INSULIN SLIDING SCALE (NOVOLOG) 1 VIAL SQ SCH ×4 (06:28→22:15)
[2020-12-22] MEDS: INSULIN (LEVEMIR) 100 UNITS/ML UNITS SQ SCH ×2 (06:28→22:15)
[2020-12-22] MEDS: DEXTROSE 5%-WATER - 1,000 ML with POTASSIUM CHLORIDE 10 MEQ IV SCH (06:28)
[2020-12-22] MEDS ORDERED: INSULIN (NOVOLOG) ASPART 100 UNITS/ML 10ML VIAL ONE (07:08)
[2020-12-22 07:58] LABS: BASO % 0.4 % (0-2.0); HEMATOCRIT 44.8 % (32.4-45.2); HEMOGLOBIN 14.9 GM/dL (10.7-15.3); LYMPH % 1.9 % (8-40); MCH 28.5 pg (25.7-33.7); MCHC 33.2 g/dl (32.0-36.0); MEAN CELL VOLUME 85.8 fl (80-96); MEAN PLT VOLUME 10.8 fl (7.5-11.1); MONO % 5.6 % (3.8-10.2); NEUT % 92.1 % (42.8-82.8); PLATELET COUNT 318 K/MM3 (134-434); RBC 5.22 M/mm3 (3.60-5.2); RDW 14.9 % (11.6-15.6)
[2020-12-22 08:20] LABS: POTASSIUM 3.9 mmol/L (3.5-5.1)
[2020-12-22 08:34] LABS: CALCIUM 9.3 mg/dL (8.5-10.1)
[2020-12-22 08:35] LABS: ALBUMIN 2.8 g/dl (3.4-5.0); BLOOD UREA NITROGEN 44.3 mg/dL (7-18); MAGNESIUM 2.4 mg/dL (1.8-2.4)
[2020-12-22 08:36] LABS: BILIRUBIN,TOTAL 0.8 mg/dL (0.2-1); TOT PROT 6.6 g/dl (6.4-8.2)
[2020-12-22 08:38] LABS: CREATININE 1.4 mg/dL (0.55-1.3)
[2020-12-22 08:56] LABS: ANISOCYTOSIS 1+; MACROCYTOSIS 0; OVALOCYTE 1+; PLATELET ESTIMATE NORMAL
[2020-12-22] MEDS ORDERED: cefTRIAXone SODIUM 1 GM VIAL ONE (09:26)
[2020-12-22] MEDS ORDERED: DEXTROSE 5%-WATER - 50 ML IVPB ONE ×2 (09:26→16:30)
[2020-12-22] MEDS: DEXAMETHASONE SOD PHOSPHATE 4 MG/1 ML VIAL IVPUSH SCH (11:07)
[2020-12-22] MEDS: APIXABAN 5 MG TABLET PO SCH ×2 (11:07→22:12)
[2020-12-22] MEDS: CEFTRIAXONE 1 GM in DEXTROSE 5%-WATER - 50 ML IVPB SCH (11:08)
[2020-12-22] MEDS: BUDESONIDE/FORMETEROL FUMARATE 160/4.5 mcg INHALER IH SCH ×2 (11:08→22:27)
[2020-12-22] MEDS: ATENOLOL 25 MG TABLET (FP) PO SCH (11:08)
[2020-12-22] MEDS: SODIUM BICARBONATE 650 MG TABLET PO SCH (11:08)
[2020-12-22] MEDS: amLODIPine BESYLATE 2.5 MG TABLET (FP) PO SCH (11:08)
[2020-12-22] MEDS: LEVOTHYROXINE NA 25 MCG TABLET (FP) PO SCH (11:08)
[2020-12-22] MEDS: GABAPENTIN 300 MG CAPSULE PO SCH ×2 (11:08→22:12)
[2020-12-22] MEDS: FAMOTIDINE 20 MG TABLET PO SCH ×2 (11:08→22:12)
[2020-12-22] MEDS: AMINO ACIDS/PROTEIN HYDROLYS 30 ML LIQUID.PKT PO SCH ×2 (11:31→18:22)
[2020-12-22] MEDS: ALBUTEROL SO4 HFA INHALER IH SCH ×4 (11:31→20:30)
[2020-12-22] MEDS ORDERED: SODIUM CHLORIDE 0.45% 1,000 ML IV SCH (15:30)
[2020-12-22] MEDS: AMINO ACIDS 4.25%/D5W 1,000 ML IV SCH ×2 (15:36→18:06)
[2020-12-22] MEDS ORDERED: PIPERACILLIN/TAZOBACTAM 3.375 GM VIAL IVPB ONE (16:29)
[2020-12-22] MEDS: PIPERACILLIN/TAZOB 3.375 GM 3.375 GM in DEXTROSE 5%-WATER - 50 ML IVPB SCH ×2 (18:07)
[2020-12-22] MEDS: ATORVASTATIN CA 10 MG TABLET (FP) PO SCH (22:13)
[2020-12-22] MEDS: LORazepam 0.5 MG TABLET PO PRN (22:13)
[2020-12-23] MEDS ORDERED: DEXTROSE 5%-WATER - 50 ML IVPB ONE ×3 (02:55→17:27)
[2020-12-23] MEDS ORDERED: PIPERACILLIN/TAZOBACTAM 3.375 GM VIAL IVPB ONE ×3 (02:55→17:26)
[2020-12-23] MEDS: PIPERACILLIN/TAZOB 3.375 GM 3.375 GM in DEXTROSE 5%-WATER - 50 ML IVPB SCH ×3 (02:57→18:13)
[2020-12-23] MEDS: INSULIN SLIDING SCALE (NOVOLOG) 1 VIAL SQ SCH ×4 (06:19→21:54)
[2020-12-23] MEDS: INSULIN (LEVEMIR) 100 UNITS/ML UNITS SQ SCH ×2 (06:19→21:54)
[2020-12-23] MEDS: AMINO ACIDS 4.25%/D5W 1,000 ML IV SCH ×2 (06:30→14:15)
[2020-12-23] MEDS: AMINO ACIDS/PROTEIN HYDROLYS 30 ML LIQUID.PKT PO SCH ×2 (08:21→16:40)
[2020-12-23] MEDS: ALBUTEROL SO4 HFA INHALER IH SCH ×4 (08:21→21:38)
[2020-12-23 09:24] LABS: POTASSIUM 5.2 mmol/L (3.5-5.1)
[2020-12-23 09:26] LABS: BASO % 0.3 % (0-2.0); HEMATOCRIT 48.8 % (32.4-45.2); HEMOGLOBIN 15.9 GM/dL (10.7-15.3); MCH 28.4 pg (25.7-33.7); MCHC 32.6 g/dl (32.0-36.0); MEAN CELL VOLUME 87.2 fl (80-96); MEAN PLT VOLUME 11.9 fl (7.5-11.1); MONO % 3.5 % (3.8-10.2); NEUT % 94.2 % (42.8-82.8); PLATELET COUNT 354 K/MM3 (134-434); RDW 15.1 % (11.6-15.6); WHITE BLOOD COUNT 27.6 K/mm3 (4.0-10.0)
[2020-12-23 09:27] LABS: ALBUMIN 2.9 g/dl (3.4-5.0); BLOOD UREA NITROGEN 43.4 mg/dL (7-18); CALCIUM 8.9 mg/dL (8.5-10.1)
[2020-12-23 09:28] LABS: MAGNESIUM 2.1 mg/dL (1.8-2.4)
[2020-12-23 09:31] LABS: CREATININE 1.3 mg/dL (0.55-1.3)
[2020-12-23 09:32] LABS: BILIRUBIN,TOTAL 1.1 mg/dL (0.2-1); TOT PROT 7.2 g/dl (6.4-8.2)
[2020-12-23] MEDS: DEXAMETHASONE SOD PHOSPHATE 4 MG/1 ML VIAL IVPUSH SCH (09:36)
[2020-12-23] MEDS: LEVOTHYROXINE NA 25 MCG TABLET (FP) PO SCH (10:25)
[2020-12-23] MEDS: APIXABAN 5 MG TABLET PO SCH ×2 (10:25→21:39)
[2020-12-23] MEDS: amLODIPine BESYLATE 2.5 MG TABLET (FP) PO SCH (10:25)
[2020-12-23] MEDS: GABAPENTIN 300 MG CAPSULE PO SCH ×2 (10:25→21:39)
[2020-12-23] MEDS: ATENOLOL 25 MG TABLET (FP) PO SCH (10:25)
[2020-12-23] MEDS: FAMOTIDINE 20 MG TABLET PO SCH ×2 (10:26→21:39)
[2020-12-23] MEDS: BUDESONIDE/FORMETEROL FUMARATE 160/4.5 mcg INHALER IH SCH ×2 (10:26→21:40)
[2020-12-23 10:49] LABS: ANISOCYTOSIS 2+; MACROCYTOSIS 0; OVALOCYTE 1+; PLATELET ESTIMATE NORMAL
[2020-12-23] MEDS: ATORVASTATIN CA 10 MG TABLET (FP) PO SCH (21:39)
[2020-12-24] MEDS: AMINO ACIDS 4.25%/D5W 1,000 ML IV SCH ×3 (02:48→18:02)
[2020-12-24] MEDS ORDERED: DEXTROSE 5%-WATER - 50 ML IVPB ONE ×3 (02:50→17:36)
[2020-12-24] MEDS ORDERED: PIPERACILLIN/TAZOBACTAM 3.375 GM VIAL IVPB ONE ×3 (02:50→17:36)
[2020-12-24] MEDS: PIPERACILLIN/TAZOB 3.375 GM 3.375 GM in DEXTROSE 5%-WATER - 50 ML IVPB SCH ×3 (02:51→18:03)
[2020-12-24] MEDS: INSULIN (LEVEMIR) 100 UNITS/ML UNITS SQ SCH ×2 (06:09→21:33)
[2020-12-24] MEDS: INSULIN SLIDING SCALE (NOVOLOG) 1 VIAL SQ SCH ×4 (06:10→21:34)
[2020-12-24 08:47] LABS: CHLORIDE 110 mmol/L (98-107); POTASSIUM 4.5 mmol/L (3.5-5.1); SODIUM 142 mmol/L (136-145)
[2020-12-24 08:48] LABS: BASO % 0.4 % (0-2.0); HEMOGLOBIN 14.2 GM/dL (10.7-15.3); LYMPH % 1.6 % (8-40); MCH 28.9 pg (25.7-33.7); MCHC 33.1 g/dl (32.0-36.0); MEAN CELL VOLUME 87.4 fl (80-96); MEAN PLT VOLUME 11.6 fl (7.5-11.1); MONO % 4.8 % (3.8-10.2); NEUT % 93.2 % (42.8-82.8); PLATELET COUNT 300 K/MM3 (134-434); RBC 4.93 M/mm3 (3.60-5.2); WHITE BLOOD COUNT 27.4 K/mm3 (4.0-10.0)
[2020-12-24 09:03] LABS: ALBUMIN 2.5 g/dl (3.4-5.0)
[2020-12-24 09:04] LABS: ANION GAP 14 MMOL/L (8-16); BLOOD UREA NITROGEN 49.5 mg/dL (7-18); CALCIUM 8.6 mg/dL (8.5-10.1); CO2 17 mmol/L (21-32); GLUCOSE,RANDOM 285 mg/dL (74-106); MAGNESIUM 2.1 mg/dL (1.8-2.4)
[2020-12-24 09:07] LABS: CREATININE 1.2 mg/dL (0.55-1.3); SGOT/AST 67 U/L (15-37); SGPT/ALT 46 U/L (13-61)
[2020-12-24 09:08] LABS: BILIRUBIN,TOTAL 1.2 mg/dL (0.2-1); TOT PROT 6.2 g/dl (6.4-8.2)
[2020-12-24 09:10] LABS: ALK PHOS 165 U/L (45-117)
[2020-12-24 09:36] LABS: LDH 945 U/L (84-246)
[2020-12-24] MEDS: ALBUTEROL SO4 HFA INHALER IH SCH ×4 (10:39→21:34)
[2020-12-24] MEDS: AMINO ACIDS/PROTEIN HYDROLYS 30 ML LIQUID.PKT PO SCH ×2 (10:39→18:03)
[2020-12-24] MEDS: DEXAMETHASONE SOD PHOSPHATE 4 MG/1 ML VIAL IVPUSH SCH (10:40)
[2020-12-24] MEDS: amLODIPine BESYLATE 2.5 MG TABLET (FP) PO SCH (10:40)
[2020-12-24] MEDS: GABAPENTIN 300 MG CAPSULE PO SCH ×2 (10:40→21:30)
[2020-12-24] MEDS: BUDESONIDE/FORMETEROL FUMARATE 160/4.5 mcg INHALER IH SCH ×2 (10:40→21:35)
[2020-12-24] MEDS: APIXABAN 5 MG TABLET PO SCH ×2 (10:40→21:30)
[2020-12-24] MEDS: LEVOTHYROXINE NA 25 MCG TABLET (FP) PO SCH (10:40)
[2020-12-24] MEDS: ATENOLOL 25 MG TABLET (FP) PO SCH (10:40)
[2020-12-24] MEDS: FAMOTIDINE 20 MG TABLET PO SCH ×2 (10:41→21:30)
[2020-12-24 11:11] LABS: ANISOCYTOSIS 1+; MACROCYTOSIS 0; OVALOCYTE 1+; PLATELET ESTIMATE NORMAL; TOXIC GRANULATION 2+
[2020-12-24] MEDS ORDERED: PT OWN MED DRAWER 7, Y5N ONE (19:28)
[2020-12-24] MEDS: ATORVASTATIN CA 10 MG TABLET (FP) PO SCH (21:30)
[2020-12-24] MEDS: ACETAMINOPHEN 325 MG TABLET (FP) PO PRN (21:43)
[2020-12-25] MEDS ORDERED: PIPERACILLIN/TAZOBACTAM 3.375 GM VIAL IVPB ONE ×3 (01:14→17:04)
[2020-12-25] MEDS ORDERED: DEXTROSE 5%-WATER - 50 ML IVPB ONE ×3 (01:15→17:04)
[2020-12-25] MEDS: AMINO ACIDS 4.25%/D5W 1,000 ML IV SCH ×2 (01:16→13:00)
[2020-12-25] MEDS: PIPERACILLIN/TAZOB 3.375 GM 3.375 GM in DEXTROSE 5%-WATER - 50 ML IVPB SCH ×3 (01:18→17:07)
[2020-12-25] MEDS: INSULIN SLIDING SCALE (NOVOLOG) 1 VIAL SQ SCH ×4 (06:29→21:41)
[2020-12-25] MEDS: INSULIN (LEVEMIR) 100 UNITS/ML UNITS SQ SCH ×2 (06:29→21:40)
[2020-12-25] MEDS ORDERED: INSULIN (NOVOLOG) ASPART 100 UNITS/ML 10ML VIAL ONE (07:04)
[2020-12-25] MEDS ORDERED: INSULIN (LEVEMIR) 100 UNITS/ML UNITS SQ ONE (07:04)
[2020-12-25 07:19] LABS: BASO % 0.5 % (0-2.0); HEMATOCRIT 43.9 % (32.4-45.2); HEMOGLOBIN 14.4 GM/dL (10.7-15.3); LYMPH % 1.5 % (8-40); MCH 28.7 pg (25.7-33.7); MCHC 32.8 g/dl (32.0-36.0); MEAN CELL VOLUME 87.4 fl (80-96); MEAN PLT VOLUME 11.5 fl (7.5-11.1); MONO % 4.2 % (3.8-10.2); NEUT % 93.8 % (42.8-82.8); PLATELET COUNT 295 K/MM3 (134-434); RBC 5.02 M/mm3 (3.60-5.2); RDW 14.7 % (11.6-15.6)
[2020-12-25 07:27] LABS: WHITE BLOOD COUNT 31.6 K/mm3 (4.0-10.0)
[2020-12-25 07:35] LABS: CHLORIDE 108 mmol/L (98-107); POTASSIUM 4.9 mmol/L (3.5-5.1); SODIUM 138 mmol/L (136-145)
[2020-12-25 07:41] LABS: ALBUMIN 2.5 g/dl (3.4-5.0); ANION GAP 10 MMOL/L (8-16); BLOOD UREA NITROGEN 59.2 mg/dL (7-18); CALCIUM 8.4 mg/dL (8.5-10.1); CO2 19 mmol/L (21-32); GLUCOSE,RANDOM 387 mg/dL (74-106); MAGNESIUM 2.1 mg/dL (1.8-2.4)
[2020-12-25 07:44] LABS: CREATININE 1.3 mg/dL (0.55-1.3); SGOT/AST 73 U/L (15-37); SGPT/ALT 65 U/L (13-61)
[2020-12-25 07:45] LABS: BILIRUBIN,TOTAL 0.9 mg/dL (0.2-1); TOT PROT 6.1 g/dl (6.4-8.2)
[2020-12-25 07:47] LABS: ALK PHOS 162 U/L (45-117)
[2020-12-25 07:50] LABS: LDH 812 U/L (84-246)
[2020-12-25] MEDS: DEXAMETHASONE SOD PHOSPHATE 4 MG/1 ML VIAL IVPUSH SCH (09:34)
[2020-12-25] MEDS: AMINO ACIDS/PROTEIN HYDROLYS 30 ML LIQUID.PKT PO SCH ×2 (09:34→17:03)
[2020-12-25] MEDS: ALBUTEROL SO4 HFA INHALER IH SCH ×4 (09:34→21:34)
[2020-12-25] MEDS: BUDESONIDE/FORMETEROL FUMARATE 160/4.5 mcg INHALER IH SCH ×2 (09:35→21:35)
[2020-12-25] MEDS: LEVOTHYROXINE NA 25 MCG TABLET (FP) PO SCH (09:35)
[2020-12-25] MEDS: amLODIPine BESYLATE 2.5 MG TABLET (FP) PO SCH (09:35)
[2020-12-25] MEDS: ATENOLOL 50 MG TABLET (FP) PO SCH (09:35)
[2020-12-25] MEDS: APIXABAN 5 MG TABLET PO SCH ×2 (09:35→21:34)
[2020-12-25] MEDS: GABAPENTIN 300 MG CAPSULE PO SCH ×2 (09:35→21:34)
[2020-12-25] MEDS: FAMOTIDINE 20 MG TABLET PO SCH ×2 (09:35→21:34)
[2020-12-25 10:08] LABS: ANISOCYTOSIS 1+; MACROCYTOSIS 0; OVALOCYTE 1+; PLATELET ESTIMATE NORMAL
[2020-12-25] MEDS: ATORVASTATIN CA 10 MG TABLET (FP) PO SCH (21:34)
[2020-12-26] MEDS ORDERED: PIPERACILLIN/TAZOBACTAM 3.375 GM VIAL IVPB ONE ×2 (01:58→08:33)
[2020-12-26] MEDS ORDERED: DEXTROSE 5%-WATER - 50 ML IVPB ONE ×2 (01:58→08:34)
[2020-12-26] MEDS: PIPERACILLIN/TAZOB 3.375 GM 3.375 GM in DEXTROSE 5%-WATER - 50 ML IVPB SCH ×3 (01:59→18:00)
[2020-12-26] MEDS: AMINO ACIDS 4.25%/D5W 1,000 ML IV SCH ×2 (01:59→14:50)
[2020-12-26] MEDS: INSULIN (LEVEMIR) 100 UNITS/ML UNITS SQ SCH ×2 (06:10→22:21)
[2020-12-26] MEDS: INSULIN SLIDING SCALE (NOVOLOG) 1 VIAL SQ SCH ×4 (06:11→22:21)
[2020-12-26 07:21] LABS: BASO % 0.5 % (0-2.0); HEMATOCRIT 44.3 % (32.4-45.2); HEMOGLOBIN 14.3 GM/dL (10.7-15.3); LYMPH % 1.4 % (8-40); MCH 28.4 pg (25.7-33.7); MCHC 32.3 g/dl (32.0-36.0); MEAN CELL VOLUME 88.1 fl (80-96); MEAN PLT VOLUME 11.3 fl (7.5-11.1); MONO % 5.4 % (3.8-10.2); NEUT % 92.7 % (42.8-82.8); PLATELET COUNT 286 K/MM3 (134-434); RBC 5.03 M/mm3 (3.60-5.2); RDW 15.3 % (11.6-15.6)
[2020-12-26 07:42] LABS: CHLORIDE 113 mmol/L (98-107); POTASSIUM 4.6 mmol/L (3.5-5.1); SODIUM 145 mmol/L (136-145)
[2020-12-26 07:54] LABS: GLUCOSE,RANDOM 350 mg/dL (74-106)
[2020-12-26 08:01] LABS: ALBUMIN 2.5 g/dl (3.4-5.0); CALCIUM 8.8 mg/dL (8.5-10.1)
[2020-12-26 08:02] LABS: ANION GAP 16 MMOL/L (8-16); BLOOD UREA NITROGEN 64.9 mg/dL (7-18); CO2 16 mmol/L (21-32); MAGNESIUM 2.3 mg/dL (1.8-2.4)
[2020-12-26 08:03] LABS: ALK PHOS 162 U/L (45-117)
[2020-12-26 08:04] LABS: SGPT/ALT 63 U/L (13-61)
[2020-12-26 08:05] LABS: BILIRUBIN,TOTAL 0.8 mg/dL (0.2-1); CREATININE 1.4 mg/dL (0.55-1.3); LDH 771 U/L (84-246); SGOT/AST 48 U/L (15-37); TOT PROT 6.2 g/dl (6.4-8.2)
[2020-12-26] MEDS: AMINO ACIDS/PROTEIN HYDROLYS 30 ML LIQUID.PKT PO SCH ×2 (08:44→18:00)
[2020-12-26] MEDS: ALBUTEROL SO4 HFA INHALER IH SCH ×4 (08:45→22:14)
[2020-12-26 08:52] LABS: WHITE BLOOD COUNT 35.4 K/mm3 (4.0-10.0)
[2020-12-26] MEDS: APIXABAN 5 MG TABLET PO SCH ×2 (09:05→22:13)
[2020-12-26] MEDS: amLODIPine BESYLATE 2.5 MG TABLET (FP) PO SCH (09:05)
[2020-12-26] MEDS: ATENOLOL 50 MG TABLET (FP) PO SCH (09:05)
[2020-12-26] MEDS: BUDESONIDE/FORMETEROL FUMARATE 160/4.5 mcg INHALER IH SCH ×2 (09:05→22:14)
[2020-12-26] MEDS: DEXAMETHASONE SOD PHOSPHATE 4 MG/1 ML VIAL IVPUSH SCH (09:05)
[2020-12-26] MEDS: LEVOTHYROXINE NA 25 MCG TABLET (FP) PO SCH (09:05)
[2020-12-26] MEDS: GABAPENTIN 300 MG CAPSULE PO SCH ×2 (09:06→22:13)
[2020-12-26] MEDS: FAMOTIDINE 20 MG TABLET PO SCH ×2 (09:06→22:13)
[2020-12-26 10:17] LABS: ANISOCYTOSIS 1+; MACROCYTOSIS 0; OVALOCYTE 1+; PLATELET ESTIMATE NORMAL
[2020-12-26] MEDS: SODIUM CHLORIDE 0.45% 1,000 ML IV SCH (15:26)
[2020-12-26] MEDS: ATORVASTATIN CA 10 MG TABLET (FP) PO SCH (22:13)
[2020-12-27] MEDS ORDERED: PIPERACILLIN/TAZOBACTAM 3.375 GM VIAL IVPB ONE ×3 (02:09→16:43)
[2020-12-27] MEDS ORDERED: DEXTROSE 5%-WATER - 50 ML IVPB ONE ×3 (02:09→16:43)
[2020-12-27] MEDS: PIPERACILLIN/TAZOB 3.375 GM 3.375 GM in DEXTROSE 5%-WATER - 50 ML IVPB SCH ×3 (02:37→17:52)
[2020-12-27] MEDS: AMINO ACIDS 4.25%/D5W 1,000 ML IV SCH ×2 (06:28→23:26)
[2020-12-27] MEDS: INSULIN (LEVEMIR) 100 UNITS/ML UNITS SQ SCH ×2 (06:28→23:27)
[2020-12-27] MEDS: INSULIN SLIDING SCALE (NOVOLOG) 1 VIAL SQ SCH ×4 (06:29→23:27)
[2020-12-27] MEDS ORDERED: INSULIN (NOVOLOG) ASPART 100 UNITS/ML 10ML VIAL ONE ×3 (07:46→16:21)
[2020-12-27 07:49] LABS: BASO % 1.4 % (0-2.0); HEMATOCRIT 44.1 % (32.4-45.2); HEMOGLOBIN 14.4 GM/dL (10.7-15.3); LYMPH % 1.8 % (8-40); MCH 28.6 pg (25.7-33.7); MCHC 32.6 g/dl (32.0-36.0); MEAN CELL VOLUME 87.9 fl (80-96); MEAN PLT VOLUME 11.4 fl (7.5-11.1); MONO % 5.6 % (3.8-10.2); NEUT % 91.2 % (42.8-82.8); PLATELET COUNT 261 K/MM3 (134-434); RBC 5.02 M/mm3 (3.60-5.2)
[2020-12-27 08:16] LABS: CHLORIDE 109 mmol/L (98-107); POTASSIUM 4.9 mmol/L (3.5-5.1); SODIUM 151 mmol/L (136-145)
[2020-12-27 08:23] LABS: CALCIUM 8.9 mg/dL (8.5-10.1)
[2020-12-27 08:24] LABS: ALBUMIN 2.5 g/dl (3.4-5.0); ANION GAP 22 MMOL/L (8-16); BLOOD UREA NITROGEN 65.8 mg/dL (7-18); CO2 20 mmol/L (21-32); GLUCOSE,RANDOM 263 mg/dL (74-106); MAGNESIUM 2.5 mg/dL (1.8-2.4)
[2020-12-27 08:27] LABS: CREATININE 1.3 mg/dL (0.55-1.3); SGOT/AST 60 U/L (15-37); SGPT/ALT 65 U/L (13-61)
[2020-12-27 08:28] LABS: LDH 766 U/L (84-246); TRIGLYCERIDES 140 mg/dL (0-150)
[2020-12-27 08:29] LABS: TOT PROT 6.1 g/dl (6.4-8.2)
[2020-12-27 08:30] LABS: ALK PHOS 156 U/L (45-117)
[2020-12-27 08:52] LABS: WHITE BLOOD COUNT 31.4 K/mm3 (4.0-10.0)
[2020-12-27] MEDS: ALBUTEROL SO4 HFA INHALER IH SCH ×4 (09:10→23:28)
[2020-12-27] MEDS: DEXAMETHASONE SOD PHOSPHATE 4 MG/1 ML VIAL IVPUSH SCH (09:10)
[2020-12-27] MEDS: amLODIPine BESYLATE 2.5 MG TABLET (FP) PO SCH (09:12)
[2020-12-27] MEDS: APIXABAN 5 MG TABLET PO SCH ×2 (09:12→23:29)
[2020-12-27] MEDS: ATENOLOL 50 MG TABLET (FP) PO SCH (09:12)
[2020-12-27] MEDS: GABAPENTIN 300 MG CAPSULE PO SCH ×2 (09:12→23:29)
[2020-12-27] MEDS: LEVOTHYROXINE NA 25 MCG TABLET (FP) PO SCH (09:12)
[2020-12-27] MEDS: FAMOTIDINE 20 MG TABLET PO SCH ×2 (09:12→23:28)
[2020-12-27] MEDS: BUDESONIDE/FORMETEROL FUMARATE 160/4.5 mcg INHALER IH SCH ×2 (09:13→23:28)
[2020-12-27] MEDS: AMINO ACIDS/PROTEIN HYDROLYS 30 ML LIQUID.PKT PO SCH ×2 (09:13→16:37)
[2020-12-27] MEDS: SODIUM CHLORIDE 0.45% 1,000 ML IV SCH (11:52)
[2020-12-27] MEDS ORDERED: DEXTROSE 5%-WATER - 1,000 ML IV SCH (16:00)
[2020-12-27] MEDS ORDERED: FAT EMULSION/OLIVE/SOY (CLINOLIPID) 250 ML EMULSION IV SCH (22:00)
[2020-12-27] MEDS: FAT EMULSION/OLIVE/SOY/PHOSPHO 250 ML IV SCH (23:26)
[2020-12-27] MEDS: ATORVASTATIN CA 10 MG TABLET (FP) PO SCH (23:28)
[2020-12-28] MEDS: PIPERACILLIN/TAZOB 3.375 GM 3.375 GM in DEXTROSE 5%-WATER - 50 ML IVPB SCH ×2 (02:24→09:30)
[2020-12-28] MEDS ORDERED: DEXTROSE 5%-WATER - 50 ML IVPB ONE ×2 (02:58→08:34)
[2020-12-28] MEDS ORDERED: PIPERACILLIN/TAZOBACTAM 3.375 GM VIAL IVPB ONE ×2 (02:58→08:34)
[2020-12-28] MEDS: INSULIN SLIDING SCALE (NOVOLOG) 1 VIAL SQ SCH ×5 (06:45→22:45)
[2020-12-28] MEDS: INSULIN (LEVEMIR) 100 UNITS/ML UNITS SQ SCH ×2 (06:45→22:33)
[2020-12-28] MEDS ORDERED: INSULIN (NOVOLOG) ASPART 100 UNITS/ML 10ML VIAL ONE ×3 (07:34→16:21)
[2020-12-28 08:00] LABS: BASO % 0.2 % (0-2.0); EOS % 0.1 % (0-4.5); HEMATOCRIT 41.7 % (32.4-45.2); HEMOGLOBIN 13.9 GM/dL (10.7-15.3); LYMPH % 2.1 % (8-40); MCH 29.3 pg (25.7-33.7); MCHC 33.3 g/dl (32.0-36.0); MEAN CELL VOLUME 88.1 fl (80-96); MEAN PLT VOLUME 11.1 fl (7.5-11.1); MONO % 6.7 % (3.8-10.2); NEUT % 90.9 % (42.8-82.8); PLATELET COUNT 223 K/MM3 (134-434); RBC 4.74 M/mm3 (3.60-5.2); RDW 15.1 % (11.6-15.6); WHITE BLOOD COUNT 27.8 K/mm3 (4.0-10.0)
[2020-12-28 08:10] LABS: CHLORIDE 107 mmol/L (98-107); POTASSIUM 4.3 mmol/L (3.5-5.1); SODIUM 138 mmol/L (136-145)
[2020-12-28 08:12] LABS: CALCIUM 7.8 mg/dL (8.5-10.1)
[2020-12-28 08:13] LABS: ANION GAP 12 MMOL/L (8-16); CO2 19 mmol/L (21-32); MAGNESIUM 2.3 mg/dL (1.8-2.4)
[2020-12-28 08:14] LABS: GLUCOSE,RANDOM 354 mg/dL (74-106)
[2020-12-28 08:15] LABS: ALBUMIN 2.4 g/dl (3.4-5.0); BLOOD UREA NITROGEN 59.3 mg/dL (7-18)
[2020-12-28 08:16] LABS: SGOT/AST 49 U/L (15-37); SGPT/ALT 60 U/L (13-61)
[2020-12-28 08:17] LABS: CREATININE 1.3 mg/dL (0.55-1.3)
[2020-12-28 08:18] LABS: BILIRUBIN,TOTAL 0.9 mg/dL (0.2-1); TOT PROT 5.6 g/dl (6.4-8.2)
[2020-12-28 08:19] LABS: ALK PHOS 140 U/L (45-117)
[2020-12-28 08:22] LABS: LDH 705 U/L (84-246)
[2020-12-28] MEDS: ALBUTEROL SO4 HFA INHALER IH SCH ×4 (09:31→22:13)
[2020-12-28] MEDS: BUDESONIDE/FORMETEROL FUMARATE 160/4.5 mcg INHALER IH SCH ×2 (09:31→22:15)
[2020-12-28] MEDS: AMINO ACIDS 4.25%/D5W 1,000 ML IV SCH (09:31)
[2020-12-28] MEDS: LEVOTHYROXINE NA 25 MCG TABLET (FP) PO SCH (09:32)
[2020-12-28] MEDS: FAMOTIDINE 20 MG TABLET PO SCH ×2 (09:32→22:15)
[2020-12-28] MEDS: DEXAMETHASONE SOD PHOSPHATE 4 MG/1 ML VIAL IVPUSH SCH (09:32)
[2020-12-28] MEDS: ATENOLOL 50 MG TABLET (FP) PO SCH (09:32)
[2020-12-28] MEDS: AMINO ACIDS/PROTEIN HYDROLYS 30 ML LIQUID.PKT PO SCH (09:32)
[2020-12-28] MEDS: APIXABAN 5 MG TABLET PO SCH ×2 (09:32→22:14)
[2020-12-28] MEDS: GABAPENTIN 300 MG CAPSULE PO SCH ×2 (09:33→22:15)
[2020-12-28] MEDS: amLODIPine BESYLATE 2.5 MG TABLET (FP) PO SCH (09:34)
[2020-12-28 10:31] LABS: ANISOCYTOSIS 1+; MACROCYTOSIS 0; PLATELET ESTIMATE NORMAL
[2020-12-28] MEDS ORDERED: AMINO ACIDS 4.25%/D5W 2,000 ML IV SCH (21:45)
[2020-12-28] MEDS: FAT EMULSION/OLIVE/SOY/PHOSPHO 250 ML IV SCH (22:14)
[2020-12-28] MEDS: ATORVASTATIN CA 10 MG TABLET (FP) PO SCH (22:15)
[2020-12-29] MEDS: INSULIN SLIDING SCALE (NOVOLOG) 1 VIAL SQ SCH ×4 (06:55→22:27)
[2020-12-29] MEDS: INSULIN (LEVEMIR) 100 UNITS/ML UNITS SQ SCH ×2 (07:12→22:28)
[2020-12-29 07:21] LABS: BASO % 0.7 % (0-2.0); EOS % 0.1 % (0-4.5); HEMATOCRIT 43.3 % (32.4-45.2); HEMOGLOBIN 14.4 GM/dL (10.7-15.3); LYMPH % 2.4 % (8-40); MCH 29.1 pg (25.7-33.7); MCHC 33.2 g/dl (32.0-36.0); MEAN CELL VOLUME 87.6 fl (80-96); MEAN PLT VOLUME 11.2 fl (7.5-11.1); MONO % 5.9 % (3.8-10.2); NEUT % 90.9 % (42.8-82.8); PLATELET COUNT 175 K/MM3 (134-434); RBC 4.94 M/mm3 (3.60-5.2); RDW 14.9 % (11.6-15.6)
[2020-12-29 07:35] LABS: WHITE BLOOD COUNT 30.7 K/mm3 (4.0-10.0)
[2020-12-29 07:37] LABS: CHLORIDE 111 mmol/L (98-107); POTASSIUM 4.2 mmol/L (3.5-5.1); SODIUM 142 mmol/L (136-145)
[2020-12-29 07:39] LABS: ALBUMIN 2.6 g/dl (3.4-5.0); CALCIUM 8.7 mg/dL (8.5-10.1)
[2020-12-29 07:40] LABS: BLOOD UREA NITROGEN 74.1 mg/dL (7-18); GLUCOSE,RANDOM 100 mg/dL (74-106); MAGNESIUM 2.5 mg/dL (1.8-2.4)
[2020-12-29 07:41] LABS: ANION GAP 13 MMOL/L (8-16); CO2 18 mmol/L (21-32)
[2020-12-29 07:42] LABS: SGPT/ALT 68 U/L (13-61)
[2020-12-29 07:43] LABS: CREATININE 1.5 mg/dL (0.55-1.3); SGOT/AST 56 U/L (15-37)
[2020-12-29 07:44] LABS: LDH 700 U/L (84-246)
[2020-12-29 07:46] LABS: BILIRUBIN,TOTAL 0.8 mg/dL (0.2-1); TOT PROT 5.9 g/dl (6.4-8.2)
[2020-12-29 07:47] LABS: ALK PHOS 144 U/L (45-117)
[2020-12-29] MEDS: ALBUTEROL SO4 HFA INHALER IH SCH ×4 (09:12→22:29)
[2020-12-29 09:43] LABS: ANISOCYTOSIS 0; MACROCYTOSIS 0; PLATELET ESTIMATE NORMAL
[2020-12-29] MEDS: DEXAMETHASONE SOD PHOSPHATE 4 MG/1 ML VIAL IVPUSH SCH (11:26)
[2020-12-29] MEDS: GABAPENTIN 300 MG CAPSULE PO SCH ×3 (11:26→23:45)
[2020-12-29] MEDS: ATENOLOL 50 MG TABLET (FP) PO SCH ×2 (11:27→15:31)
[2020-12-29] MEDS: LEVOTHYROXINE NA 25 MCG TABLET (FP) PO SCH ×2 (11:27→15:31)
[2020-12-29] MEDS: APIXABAN 5 MG TABLET PO SCH ×3 (11:27→23:45)
[2020-12-29] MEDS: FAMOTIDINE 20 MG TABLET PO SCH ×3 (11:28→23:45)
[2020-12-29] MEDS: BUDESONIDE/FORMETEROL FUMARATE 160/4.5 mcg INHALER IH SCH ×2 (11:28→22:28)
[2020-12-29] MEDS: amLODIPine BESYLATE 2.5 MG TABLET (FP) PO SCH ×2 (11:28→15:31)
[2020-12-29] MEDS ORDERED: ACETAMINOPHEN 1000 MG/100 ML VIAL (NON FORMULARY) IVPB ONE (15:35)
[2020-12-29] MEDS ORDERED: PT OWN MED DRAWER 7, Y5N ONE (16:03)
[2020-12-29] MEDS ORDERED: MIRTAZAPINE 15 MG TABLET (FP) PO SCH (22:00)
[2020-12-29] MEDS: FAT EMULSION/OLIVE/SOY/PHOSPHO 250 ML IV SCH (22:29)
[2020-12-29] MEDS: ATORVASTATIN CA 10 MG TABLET (FP) PO SCH (23:45)
[2020-12-30] MEDS ORDERED: SODIUM CHLORIDE 1,000 ML IV STA (05:30)
[2020-12-30 06:07] LABS: ALLENS TEST POSITIVE; ARTERIAL BLD GAS O2 SATURATION 93.9 mmHg (95-98); ARTERIAL BLOOD GAS BASE EXCESS -16.3 mmol/L (-2-2); ARTERIAL BLOOD GAS PO2 94.7 mmHg (80-100)
[2020-12-30 06:10] LABS: ARTERIAL BLOOD GAS pH 7.073 (7.350-7.450)
[2020-12-30 06:35] LABS: BASO % 0.2 % (0-2.0); HEMOGLOBIN 9.8 GM/dL (10.7-15.3); MCH 28.5 pg (25.7-33.7); MCHC 31.5 g/dl (32.0-36.0); MEAN CELL VOLUME 90.3 fl (80-96); MEAN PLT VOLUME 11.4 fl (7.5-11.1); MONO % 2.9 % (3.8-10.2); NEUT % 95.9 % (42.8-82.8); PLATELET COUNT 106 K/MM3 (134-434); RBC 3.43 M/mm3 (3.60-5.2); RDW 14.9 % (11.6-15.6); WHITE BLOOD COUNT 17.6 K/mm3 (4.0-10.0)
[2020-12-30 06:50] LABS: CHLORIDE 113 mmol/L (98-107); POTASSIUM 4.4 mmol/L (3.5-5.1); SODIUM 140 mmol/L (136-145)
[2020-12-30 06:53] LABS: ANION GAP 11 MMOL/L (8-16); BLOOD UREA NITROGEN 97.8 mg/dL (7-18); CO2 17 mmol/L (21-32); GLUCOSE,RANDOM 280 mg/dL (74-106); MAGNESIUM 2.1 mg/dL (1.8-2.4)
[2020-12-30 06:56] LABS: CREATININE 2.2 mg/dL (0.55-1.3); SGOT/AST 43 U/L (15-37); SGPT/ALT 48 U/L (13-61)
[2020-12-30 06:58] LABS: BILIRUBIN,TOTAL 0.6 mg/dL (0.2-1); TOT PROT 4.3 g/dl (6.4-8.2)
[2020-12-30 06:59] LABS: ALK PHOS 124 U/L (45-117); LDH 592 U/L (84-246)
[2020-12-30 07:20] LABS: ALBUMIN 1.9 g/dl (3.4-5.0); CALCIUM 7.3 mg/dL (8.5-10.1)
[2020-12-30] MEDS: INSULIN (LEVEMIR) 100 UNITS/ML UNITS SQ SCH ×2 (08:25→21:15)
[2020-12-30] MEDS: ALBUTEROL SO4 HFA INHALER IH SCH ×3 (08:34→17:17)
[2020-12-30] MEDS ORDERED: NOREPINEPHRINE BITARTRATE 4 MG/4 ML ML IV ONE (08:57)
[2020-12-30] MEDS ORDERED: NOREPINEPHRINE BITARTRATE 4,000 MCG in DEXTROSE 5%-WATER - 496 ML IV SCH (09:00)
[2020-12-30] MEDS ORDERED: NOREPINEPHRINE BITARTRATE 8,000 MCG/500 ML BAG IVPB SCH (09:00)
[2020-12-30] MEDS ORDERED: PIPERACILLIN/TAZOB 3.375 GM 3.375 GM in DEXTROSE 5%-WATER - 50 ML IVPB SCH (10:00)
[2020-12-30 10:09] LABS: ANISOCYTOSIS 0; MACROCYTOSIS 0; OVALOCYTE 1+; PLATELET ESTIMATE DECREASED
[2020-12-30] MEDS ORDERED: DEXTROSE 5%-WATER - 50 ML IVPB ONE ×3 (10:37→22:06)
[2020-12-30] MEDS ORDERED: PIPERACILLIN/TAZOBACTAM 3.375 GM VIAL IVPB ONE ×3 (10:37→22:05)
[2020-12-30] MEDS: INSULIN SLIDING SCALE (NOVOLOG) 1 VIAL SQ SCH ×4 (10:51→21:14)
[2020-12-30] MEDS: PIPERACILLIN/TAZOB 3.375 GM 3.375 GM in DEXTROSE 5%-WATER - 50 ML IVPB SCH ×2 (10:52→17:17)
[2020-12-30] MEDS: DEXAMETHASONE SOD PHOSPHATE 4 MG/1 ML VIAL IVPUSH SCH (10:52)
[2020-12-30] MEDS: APIXABAN 5 MG TABLET PO SCH (12:16)
[2020-12-30] MEDS: GABAPENTIN 300 MG CAPSULE PO SCH (12:17)
[2020-12-30] MEDS: FAMOTIDINE 20 MG TABLET PO SCH ×2 (12:18→21:13)
[2020-12-30] MEDS: amLODIPine BESYLATE 2.5 MG TABLET (FP) PO SCH (12:18)
[2020-12-30] MEDS: BUDESONIDE/FORMETEROL FUMARATE 160/4.5 mcg INHALER IH SCH ×2 (12:19→22:26)
[2020-12-30] MEDS: LEVOTHYROXINE NA 25 MCG TABLET (FP) PO SCH (12:19)
[2020-12-30] MEDS: ATENOLOL 50 MG TABLET (FP) PO SCH (12:19)
[2020-12-30 12:28] LABS: LACTIC ACID 4.3 mmol/L (0.4-2.0)
[2020-12-30] MEDS ORDERED: HEPARIN NA (PORCINE) 5,000 UNITS/ML 1ML VIAL IVPUSH PRN ×2 (12:41)
[2020-12-30] MEDS ORDERED: HEPARIN INFUSION - 25,000 UNITS/500 ML INFUS.BAG IVPB SCH (12:45)
[2020-12-30] MEDS ORDERED: ELECTROLYTE-148 SOLN 1,000 ML IV SCH (12:45)
[2020-12-30 14:37] LABS: EPI CELLS 3 /uL (0-25.1); HYALINE CASTS 10 /uL (0-3.1); URINE APPEARANCE TURBID; URINE BACTERIA 8 /uL (0-1359); URINE BILIRUBIN NEGATIVE (NEGATIVE); URINE COLOR YELLOW; URINE GLUCOSE (UA) 1+ (NEGATIVE); URINE KETONE NEGATIVE (NEGATIVE); URINE LEUK ESTERASE 1+ (NEGATIVE); URINE NITRITE NEGATIVE (NEGATIVE); URINE PROTEIN 1+ (NEGATIVE); URINE UROBILINOGEN 0.2 mg/dL (0.2-1.0); URINE WBC 735 /uL (0-25.8)
[2020-12-30 16:33] LABS: URINE RBC 523.2 /uL (0-23.9)
[2020-12-30] MEDS ORDERED: KETAMINE HCL 200 MG/20 ML VIAL IVPUSH ONE (17:24)
[2020-12-30] MEDS ORDERED: ETOMIDATE 40 MG/20 ML VIAL IVPUSH ONE ×2 (17:28→17:45)
[2020-12-30] MEDS ORDERED: ROCURONIUM BROMIDE 50 MG/5 ML VIAL IV ONE (17:41)
[2020-12-30] MEDS ORDERED: ROCURONIUM BROMIDE 100 MG/10 ML VIAL ONE (17:45)
[2020-12-30] MEDS ORDERED: ALBUTEROL SO4 0.083% IH SOL 2.5 MG/3 ML VIAL.NEB. NEB ONE (18:14)
[2020-12-30] MEDS: FENTANYL NS IVPB 500 MCG/100 ML BAG IVPB SCH (19:30)
[2020-12-30 20:43] LABS: ARTERIAL BLD GAS O2 SATURATION 78.1 mmHg (95-98); ARTERIAL BLOOD GAS BASE EXCESS -28.1 mmol/L (-2-2)
[2020-12-30 20:47] LABS: ALLENS TEST POSITIVE
[2020-12-30 20:48] LABS: ARTERIAL BLOOD GAS pH 6.748 (7.350-7.450); VENT MODE A/C; VENT RATE 28
[2020-12-30] MEDS ORDERED: SODIUM BICARBONATE 8.4% 50 MEQ/50 ML VIAL IVPB ONE (20:48)
[2020-12-30] MEDS ORDERED: SODIUM BICARBONATE 8.4% 50 MEQ/50 ML VIAL IVPUSH ONE (20:48)
[2020-12-30] MEDS ORDERED: SODIUM BICARBONATE 8.4% - 100 ML ONE (20:50)
[2020-12-30 21:03] LABS: CHLORIDE 114 mmol/L (98-107); SODIUM 145 mmol/L (136-145)
[2020-12-30 21:06] LABS: ALBUMIN 1.8 g/dl (3.4-5.0); ANION GAP 20 MMOL/L (8-16); CO2 11 mmol/L (21-32); GLUCOSE,RANDOM 131 mg/dL (74-106)
[2020-12-30 21:09] LABS: CREATININE 3.2 mg/dL (0.55-1.3); SGOT/AST 113 U/L (15-37); SGPT/ALT 62 U/L (13-61)
[2020-12-30 21:11] LABS: TOT PROT 4.6 g/dl (6.4-8.2)
[2020-12-30 21:12] LABS: ALK PHOS 117 U/L (45-117)
[2020-12-30 21:13] LABS: BLOOD UREA NITROGEN 107.8 mg/dL (7-18); CALCIUM 6.9 mg/dL (8.5-10.1)
[2020-12-30] MEDS: ATORVASTATIN CA 10 MG TABLET (FP) PO SCH (21:13)
[2020-12-30] MEDS: DEXTROSE 5%-WATER - 950 ML with SODIUM BICARBONATE 8.4% - 150 MEQ IV SCH (21:19)
[2020-12-30] MEDS ORDERED: VASOPRESSIN 40 UNITS in SODIUM CHLORIDE 98 ML IVPB SCH ×3 (21:45)
[2020-12-30] MEDS: PANTOPRAZOLE SODIUM 40 MG VIAL IVPUSH SCH (22:12)
[2020-12-30] MEDS: methylPREDNISolone NA SUCC 125 MG/2 ML VIAL IVPUSH SCH (22:12)
[2020-12-30] MEDS: NOREPINEPHRINE BITARTRATE 16,000 MCG in SODIUM CHLORIDE 484 ML IV SCH (23:13)
[2020-12-30 23:55] LABS: ARTERIAL BLD GAS O2 SATURATION 79.9 mmHg (95-98); ARTERIAL BLOOD GAS BASE EXCESS -21.2 mmol/L (-2-2); ARTERIAL BLOOD GAS PO2 68.9 mmHg (80-100)
[2020-12-30 23:56] LABS: ALLENS TEST POSITIVE
[2020-12-30 23:57] LABS: ARTERIAL BLOOD GAS pH 6.936 (7.350-7.450); VENT MODE A/C; VENT RATE 32
[2020-12-30] MEDS ORDERED: SODIUM BICARBONATE 8.4% 50 MEQ/50 ML DISP.SYRIN IVPUSH ONE ×2 (23:57)
[2020-12-31] MEDS: NOREPINEPHRINE BITARTRATE 16,000 MCG in SODIUM CHLORIDE 484 ML IV SCH (00:18)
[2020-12-31 00:50] LABS: LACTIC ACID 13.1 mmol/L (0.4-2.0)
[2020-12-31] MEDS: methylPREDNISolone NA SUCC 125 MG/2 ML VIAL IVPUSH SCH ×2 (01:45→09:00)
[2020-12-31] MEDS: PIPERACILLIN/TAZOB 3.375 GM 3.375 GM in DEXTROSE 5%-WATER - 50 ML IVPB SCH (01:45)
[2020-12-31] MEDS: DEXTROSE 5%-WATER - 950 ML with SODIUM BICARBONATE 8.4% - 150 MEQ IV SCH ×4 (05:28→21:24)
[2020-12-31] MEDS: FENTANYL NS IVPB 500 MCG/100 ML BAG IVPB SCH (05:28)
[2020-12-31] MEDS: INSULIN SLIDING SCALE (NOVOLOG) 1 VIAL SQ SCH ×4 (06:00→21:23)
[2020-12-31] MEDS: INSULIN (LEVEMIR) 100 UNITS/ML UNITS SQ SCH ×2 (06:00→21:23)
[2020-12-31 06:14] LABS: ARTERIAL BLD GAS O2 SATURATION 91.4 mmHg (95-98); ARTERIAL BLOOD GAS BASE EXCESS -12.1 mmol/L (-2-2); ARTERIAL BLOOD GAS PO2 76.3 mmHg (80-100)
[2020-12-31 06:37] LABS: ALLENS TEST POSITIVE
[2020-12-31 06:38] LABS: BASO % 0.1 % (0-2.0); HEMATOCRIT 29.8 % (32.4-45.2); HEMOGLOBIN 9.8 GM/dL (10.7-15.3); LYMPH % 0.9 % (8-40); MCH 28.9 pg (25.7-33.7); MCHC 33.1 g/dl (32.0-36.0); MEAN CELL VOLUME 87.4 fl (80-96); MEAN PLT VOLUME 12.1 fl (7.5-11.1); MONO % 2.1 % (3.8-10.2); NEUT % 96.9 % (42.8-82.8); PLATELET COUNT 57 K/MM3 (134-434); RBC 3.41 M/mm3 (3.60-5.2); RDW 14.8 % (11.6-15.6); WHITE BLOOD COUNT 27.8 K/mm3 (4.0-10.0)
[2020-12-31 06:38] LABS: VENT MODE A/C; VENT RATE 32
[2020-12-31 06:48] LABS: ARTERIAL BLOOD GAS pH 7.165 (7.350-7.450)
[2020-12-31 06:57] LABS: CHLORIDE 106 mmol/L (98-107); POTASSIUM 4.4 mmol/L (3.5-5.1); SODIUM 146 mmol/L (136-145)
[2020-12-31 07:01] LABS: ALBUMIN 1.6 g/dl (3.4-5.0); ANION GAP 21 MMOL/L (8-16); CO2 19 mmol/L (21-32)
[2020-12-31 07:02] LABS: GLUCOSE,RANDOM 351 mg/dL (74-106); MAGNESIUM 2.1 mg/dL (1.8-2.4)
[2020-12-31 07:04] LABS: CREATININE 3.6 mg/dL (0.55-1.3); SGOT/AST 102 U/L (15-37); SGPT/ALT 57 U/L (13-61)
[2020-12-31 07:05] LABS: PHOSPHOROUS 7.8 mg/dL (2.5-4.9)
[2020-12-31 07:06] LABS: BILIRUBIN,TOTAL 1.2 mg/dL (0.2-1); TOT PROT 4.4 g/dl (6.4-8.2)
[2020-12-31 07:07] LABS: ALK PHOS 104 U/L (45-117)
[2020-12-31 07:21] LABS: LDH 1007 U/L (84-246)
[2020-12-31 07:59] LABS: LACTIC ACID 11.8 mmol/L (0.4-2.0)
[2020-12-31 08:05] LABS: BLOOD UREA NITROGEN 109.3 mg/dL (7-18); CALCIUM 6.7 mg/dL (8.5-10.1)
[2020-12-31] MEDS: ALBUTEROL SO4 HFA INHALER IH SCH ×3 (08:58→16:33)
[2020-12-31] MEDS: LEVOTHYROXINE NA 25 MCG TABLET (FP) PO SCH (09:00)
[2020-12-31] MEDS: PANTOPRAZOLE SODIUM 40 MG VIAL IVPUSH SCH ×2 (09:00→21:23)
[2020-12-31] MEDS: BUDESONIDE/FORMETEROL FUMARATE 160/4.5 mcg INHALER IH SCH ×2 (09:01→21:24)
[2020-12-31 10:04] LABS: ANISOCYTOSIS 1+; MACROCYTOSIS 0; PLATELET ESTIMATE DECREASED
[2020-12-31] MEDS ORDERED: PT OWN MED DRAWER 7, Y5N ONE (11:45)
[2020-12-31] MEDS ORDERED: INSULIN (NOVOLOG) ASPART 100 UNITS/ML 10ML VIAL ONE (11:46)
[2020-12-31] MEDS ORDERED: FENTANYL IVPB 500 MCG/100 ML BAG IVPB ONE (12:56)
[2020-12-31] MEDS ORDERED: DEXTROSE 5%-WATER - 50 ML IVPB ONE ×3 (15:31→21:08)
[2020-12-31] MEDS ORDERED: PIPERACILLIN/TAZOBACTAM 2.25 GM VIAL IVPB ONE ×3 (15:31→21:08)
[2020-12-31] MEDS: PIPERACILLIN/TAZOB 2.25 GM 2.25 GM in DEXTROSE 5%-WATER - 50 ML IVPB SCH ×2 (15:33→17:20)
[2020-12-31 16:40] LABS: HEMATOCRIT 24.3 % (32.4-45.2); MCH 28.1 pg (25.7-33.7); MCHC 32.8 g/dl (32.0-36.0); MEAN CELL VOLUME 85.7 fl (80-96); MEAN PLT VOLUME 11.7 fl (7.5-11.1); PLATELET COUNT 46 K/MM3 (134-434); RBC 2.84 M/mm3 (3.60-5.2); RDW 14.9 % (11.6-15.6); WHITE BLOOD COUNT 21.7 K/mm3 (4.0-10.0)
[2020-12-31] MEDS: PROPOFOL 1,000,000 MCG/100 ML VIAL IVPB SCH (16:52)
[2020-12-31] MEDS: ATORVASTATIN CA 10 MG TABLET (FP) PO SCH (21:23)
[2020-12-31 23:18] LABS: HEMATOCRIT 23.4 % (32.4-45.2); HEMOGLOBIN 7.7 GM/dL (10.7-15.3); MCHC 32.9 g/dl (32.0-36.0); MEAN CELL VOLUME 85.2 fl (80-96); MEAN PLT VOLUME 10.4 fl (7.5-11.1); PLATELET COUNT 43 K/MM3 (134-434); RBC 2.74 M/mm3 (3.60-5.2); RDW 14.8 % (11.6-15.6); WHITE BLOOD COUNT 21.7 K/mm3 (4.0-10.0)
[2021-01-01] MEDS: FENTANYL NS IVPB 500 MCG/100 ML BAG IVPB SCH ×2 (01:45→21:12)
[2021-01-01] MEDS: PIPERACILLIN/TAZOB 2.25 GM 2.25 GM in DEXTROSE 5%-WATER - 50 ML IVPB SCH ×3 (02:08→17:21)
[2021-01-01] MEDS ORDERED: PHENYLEPHRINE HCL 10 MG/1 ML SINGLE DOSE VIAL ONE (05:00)
[2021-01-01] MEDS: DEXTROSE 5%-WATER - 950 ML with SODIUM BICARBONATE 8.4% - 150 MEQ IV SCH (05:47)
[2021-01-01 06:06] LABS: ARTERIAL BLD GAS O2 SATURATION 98.7 mmHg (95-98); ARTERIAL BLOOD GAS BASE EXCESS 5.9 mmol/L (-2-2); ARTERIAL BLOOD GAS PO2 128.4 mmHg (80-100); ARTERIAL BLOOD GAS pH 7.474 (7.350-7.450)
[2021-01-01 06:07] LABS: ALLENS TEST POSITIVE; VENT MODE A/C
[2021-01-01 06:08] LABS: VENT RATE 32
[2021-01-01 06:56] LABS: BASO % 0.1 % (0-2.0); HEMATOCRIT 21.6 % (32.4-45.2); HEMOGLOBIN 7.3 GM/dL (10.7-15.3); LYMPH % 0.8 % (8-40); MCH 28.7 pg (25.7-33.7); MEAN CELL VOLUME 84.6 fl (80-96); MEAN PLT VOLUME 11.9 fl (7.5-11.1); MONO % 2.5 % (3.8-10.2); NEUT % 96.6 % (42.8-82.8); PLATELET COUNT 38 K/MM3 (134-434); RBC 2.55 M/mm3 (3.60-5.2); RDW 14.8 % (11.6-15.6); WHITE BLOOD COUNT 22.2 K/mm3 (4.0-10.0)
[2021-01-01] MEDS: INSULIN SLIDING SCALE (NOVOLOG) 1 VIAL SQ SCH ×4 (07:00→21:13)
[2021-01-01 07:13] LABS: CHLORIDE 96 mmol/L (98-107); POTASSIUM 4.2 mmol/L (3.5-5.1); SODIUM 141 mmol/L (136-145)
[2021-01-01 07:17] LABS: GLUCOSE,RANDOM 240 mg/dL (74-106)
[2021-01-01 07:18] LABS: ALBUMIN 1.4 g/dl (3.4-5.0); ANION GAP 16 MMOL/L (8-16); CO2 28 mmol/L (21-32)
[2021-01-01 07:20] LABS: CREATININE 4.3 mg/dL (0.55-1.3); PHOSPHOROUS 5.2 mg/dL (2.5-4.9); SGPT/ALT 42 U/L (13-61)
[2021-01-01 07:21] LABS: SGOT/AST 84 U/L (15-37)
[2021-01-01 07:22] LABS: BILIRUBIN,TOTAL 0.9 mg/dL (0.2-1); TOT PROT 3.7 g/dl (6.4-8.2)
[2021-01-01 07:23] LABS: ALK PHOS 97 U/L (45-117)
[2021-01-01 07:34] LABS: BLOOD UREA NITROGEN 111.4 mg/dL (7-18); CALCIUM 5.8 mg/dL (8.5-10.1); LDH 957 U/L (84-246)
[2021-01-01 09:00] LABS: ANISOCYTOSIS 0; MACROCYTOSIS 0; PLATELET ESTIMATE DECREASED
[2021-01-01] MEDS ORDERED: DEXTROSE 5%-WATER - 50 ML IVPB ONE ×2 (10:02→17:20)
[2021-01-01] MEDS ORDERED: PIPERACILLIN/TAZOBACTAM 2.25 GM VIAL IVPB ONE ×2 (10:02→17:20)
[2021-01-01] MEDS: LEVOTHYROXINE NA 25 MCG TABLET (FP) PO SCH (10:05)
[2021-01-01] MEDS: DEXAMETHASONE SOD PHOSPHATE 10 MG/1 ML VIAL IVPUSH SCH (10:07)
[2021-01-01] MEDS: PANTOPRAZOLE SODIUM 40 MG VIAL IVPUSH SCH ×2 (10:09→21:12)
[2021-01-01] MEDS: INSULIN (LEVEMIR) 100 UNITS/ML UNITS SQ SCH ×2 (10:11→21:11)
[2021-01-01] MEDS ORDERED: CALCIUM GLUCONATE 10% - 1,000 MG/10 ML VIAL IVPB ONE (17:12)
[2021-01-01] MEDS: PROPOFOL 1,000,000 MCG/100 ML VIAL IVPB SCH (17:27)
[2021-01-01] MEDS ORDERED: CALCIUM GLUCONATE IN NACL 1 GM/50 ML BAG IVPB ONE (17:30)
[2021-01-01] MEDS: ATORVASTATIN CA 10 MG TABLET (FP) PO SCH (21:11)
[2021-01-02] MEDS: PIPERACILLIN/TAZOB 2.25 GM 2.25 GM in DEXTROSE 5%-WATER - 50 ML IVPB SCH ×3 (01:30→18:33)
[2021-01-02] MEDS ORDERED: DEXTROSE 50%-WATER - 25 GM/50 ML VIAL IVPUSH ONE (05:56)
[2021-01-02] MEDS ORDERED: DEXTROSE 50%-WATER 25 GM/50 ML DISP.SYRIN ONE (05:58)
[2021-01-02] MEDS: INSULIN SLIDING SCALE (NOVOLOG) 1 VIAL SQ SCH ×3 (06:01→22:19)
[2021-01-02 07:28] LABS: BASO % 0.9 % (0-2.0); EOS % 0.1 % (0-4.5); HEMATOCRIT 25.7 % (32.4-45.2); HEMOGLOBIN 8.8 GM/dL (10.7-15.3); LYMPH % 1.3 % (8-40); MCHC 34.3 g/dl (32.0-36.0); MEAN CELL VOLUME 84.7 fl (80-96); MEAN PLT VOLUME 11.3 fl (7.5-11.1); MONO % 2.4 % (3.8-10.2); NEUT % 95.3 % (42.8-82.8); RBC 3.04 M/mm3 (3.60-5.2); RDW 14.8 % (11.6-15.6); WHITE BLOOD COUNT 19.3 K/mm3 (4.0-10.0)
[2021-01-02 07:32] LABS: CHLORIDE 94 mmol/L (98-107); POTASSIUM 4.5 mmol/L (3.5-5.1); SODIUM 141 mmol/L (136-145)
[2021-01-02 07:37] LABS: INR 1.06 (0.83-1.09); PLATELET COUNT 28 K/MM3 (134-434)
[2021-01-02 07:39] LABS: ALBUMIN 1.5 g/dl (3.4-5.0); ANION GAP 15 MMOL/L (8-16); CO2 32 mmol/L (21-32)
[2021-01-02 07:42] LABS: CREATININE 4.9 mg/dL (0.55-1.3); PHOSPHOROUS 6.4 mg/dL (2.5-4.9); SGOT/AST 129 U/L (15-37); SGPT/ALT 54 U/L (13-61)
[2021-01-02 07:43] LABS: BILIRUBIN,TOTAL 1.2 mg/dL (0.2-1); TOT PROT 4.1 g/dl (6.4-8.2)
[2021-01-02 07:46] LABS: ALK PHOS 127 U/L (45-117)
[2021-01-02 08:37] LABS: BLOOD UREA NITROGEN 125.8 mg/dL (7-18); GLUCOSE,RANDOM 29 mg/dL (74-106)
[2021-01-02] MEDS ORDERED: CALCIUM GLUC IN NACL, ISO-OSM 1 GM/50 ML BAG IVPB ONE (09:00)
[2021-01-02] MEDS ORDERED: PIPERACILLIN/TAZOBACTAM 2.25 GM VIAL IVPB ONE ×3 (10:16→21:34)
[2021-01-02] MEDS ORDERED: DEXTROSE 5%-WATER - 50 ML IVPB ONE ×3 (10:16→21:34)
[2021-01-02] MEDS: FENTANYL NS IVPB 500 MCG/100 ML BAG IVPB SCH ×2 (10:19→22:19)
[2021-01-02] MEDS: LEVOTHYROXINE NA 25 MCG TABLET (FP) PO SCH (10:26)
[2021-01-02] MEDS: PANTOPRAZOLE SODIUM 40 MG VIAL IVPUSH SCH ×2 (10:26→22:18)
[2021-01-02] MEDS: DEXAMETHASONE SOD PHOSPHATE 10 MG/1 ML VIAL IVPUSH SCH (10:27)
[2021-01-02 12:09] LABS: ANISOCYTOSIS 0; HELMET CELLS 0; HOWELL-JOLLY BODIES 0; MACROCYTOSIS 0; OVALOCYTE 0; PLATELET ESTIMATE DECREASED; ROULEAU 0; SICKELED CELLS 0; TARGET CELLS 0; TEAR DROP CELLS 0; TOXIC GRANULATION 0
[2021-01-02 13:26] VITALS: BMI 33.8
[2021-01-02] MEDS: PROPOFOL 1,000,000 MCG/100 ML VIAL IVPB SCH ×2 (15:17→18:19)
[2021-01-02] MEDS: AMINO ACIDS/PROTEIN HYDROLYS 30 ML LIQUID.PKT PO SCH (18:33)
[2021-01-02] MEDS: ATORVASTATIN CA 10 MG TABLET (FP) PO SCH (22:19)
[2021-01-03] MEDS ORDERED: DEXTROSE 5%-WATER - 50 ML IVPB ONE ×3 (00:58→17:15)
[2021-01-03] MEDS ORDERED: PIPERACILLIN/TAZOBACTAM 2.25 GM VIAL IVPB ONE ×3 (00:58→17:15)
[2021-01-03] MEDS: PIPERACILLIN/TAZOB 2.25 GM 2.25 GM in DEXTROSE 5%-WATER - 50 ML IVPB SCH ×3 (01:04→17:44)
[2021-01-03] MEDS: INSULIN SLIDING SCALE (NOVOLOG) 1 VIAL SQ SCH ×3 (06:32→17:52)
[2021-01-03 07:05] LABS: BASO % 0.2 % (0-2.0); HEMATOCRIT 23.7 % (32.4-45.2); HEMOGLOBIN 8.2 GM/dL (10.7-15.3); LYMPH % 1.1 % (8-40); MCH 29.4 pg (25.7-33.7); MCHC 34.5 g/dl (32.0-36.0); MEAN CELL VOLUME 85.2 fl (80-96); MEAN PLT VOLUME 8.4 fl (7.5-11.1); MONO % 2.6 % (3.8-10.2); NEUT % 96.1 % (42.8-82.8); PLATELET COUNT 56 K/MM3 (134-434); RBC 2.78 M/mm3 (3.60-5.2); RDW 15.2 % (11.6-15.6); WHITE BLOOD COUNT 16.4 K/mm3 (4.0-10.0)
[2021-01-03 07:25] LABS: CHLORIDE 92 mmol/L (98-107); POTASSIUM 5.3 mmol/L (3.5-5.1); SODIUM 137 mmol/L (136-145)
[2021-01-03 07:28] LABS: ALBUMIN 1.7 g/dl (3.4-5.0); ANION GAP 17 MMOL/L (8-16); CO2 29 mmol/L (21-32); GLUCOSE,RANDOM 147 mg/dL (74-106)
[2021-01-03 07:31] LABS: CREATININE 5.3 mg/dL (0.55-1.3); SGOT/AST 312 U/L (15-37); SGPT/ALT 132 U/L (13-61)
[2021-01-03 07:32] LABS: BILIRUBIN,TOTAL 1.9 mg/dL (0.2-1); TOT PROT 4.2 g/dl (6.4-8.2)
[2021-01-03 07:55] LABS: ALK PHOS 224 U/L (45-117); CALCIUM 5.6 mg/dL (8.5-10.1); LDH 1430 U/L (84-246); PHOSPHOROUS 8.2 mg/dL (2.5-4.9)
[2021-01-03 08:30] LABS: BILIRUBIN,DIRECT 1.6 mg/dL (0.0-0.2)
[2021-01-03] MEDS ORDERED: CALCIUM GLUCONATE IN NACL 1 GM/50 ML BAG IVPB ONE ×2 (08:30→09:45)
[2021-01-03] MEDS: AMINO ACIDS/PROTEIN HYDROLYS 30 ML LIQUID.PKT PO SCH ×2 (08:56→17:44)
[2021-01-03] MEDS: LEVOTHYROXINE NA 25 MCG TABLET (FP) PO SCH (09:35)
[2021-01-03] MEDS: PANTOPRAZOLE SODIUM 40 MG VIAL IVPUSH SCH ×2 (09:35→22:57)
[2021-01-03] MEDS: DEXAMETHASONE SOD PHOSPHATE 10 MG/1 ML VIAL IVPUSH SCH (09:35)
[2021-01-03] MEDS: FENTANYL NS IVPB 500 MCG/100 ML BAG IVPB SCH ×3 (09:36→21:07)
[2021-01-03] MEDS ORDERED: FUROSEMIDE 40 MG/4 ML INJECTABLE VIAL IVPUSH ONE (09:45)
[2021-01-03] MEDS: SODIUM ZIRCONIUM CYCLOSILICATE (LOKELMA) 5 GM PACKET PO SCH ×2 (09:55→13:23)
[2021-01-03 10:34] LABS: ANISOCYTOSIS 1+; MACROCYTOSIS 0; PLATELET ESTIMATE DECREASED
[2021-01-03] MEDS: SEVELAMER CARBONATE 2.4 GM POWDER PACKET PO SCH ×2 (12:07→17:44)
[2021-01-03] MEDS: PROPOFOL 1,000,000 MCG/100 ML VIAL IVPB SCH ×2 (13:22→17:44)
[2021-01-03] MEDS: ATORVASTATIN CA 10 MG TABLET (FP) PO SCH (22:57)
[2021-01-04] MEDS ORDERED: NOREPINEPHRINE NS PREMIX 16,000 MCG/500 ML BAG IVPB ONE (00:10)
[2021-01-04] MEDS ORDERED: DEXTROSE 5%-WATER - 50 ML IVPB ONE ×3 (00:18→16:55)
[2021-01-04] MEDS ORDERED: PIPERACILLIN/TAZOBACTAM 2.25 GM VIAL IVPB ONE ×3 (00:18→16:55)
[2021-01-04] MEDS: PIPERACILLIN/TAZOB 2.25 GM 2.25 GM in DEXTROSE 5%-WATER - 50 ML IVPB SCH ×3 (01:59→17:17)
[2021-01-04] MEDS: INSULIN SLIDING SCALE (NOVOLOG) 1 VIAL SQ SCH ×4 (06:06→17:16)
[2021-01-04] MEDS: NOREPINEPHRINE BITARTRATE 16,000 MCG in SODIUM CHLORIDE 484 ML IV SCH (06:08)
[2021-01-04 07:38] LABS: BASO % 0.1 % (0-2.0); HEMATOCRIT 21.6 % (32.4-45.2); HEMOGLOBIN 7.8 GM/dL (10.7-15.3); LYMPH % 1.3 % (8-40); MCH 31.5 pg (25.7-33.7); MCHC 36.1 g/dl (32.0-36.0); MEAN CELL VOLUME 87.2 fl (80-96); MONO % 2.3 % (3.8-10.2); NEUT % 96.3 % (42.8-82.8); PLATELET COUNT 50 K/MM3 (134-434); RBC 2.48 M/mm3 (3.60-5.2); WHITE BLOOD COUNT 15.5 K/mm3 (4.0-10.0)
[2021-01-04 07:44] LABS: CHLORIDE 90 mmol/L (98-107); POTASSIUM 5.9 mmol/L (3.5-5.1); SODIUM 133 mmol/L (136-145)
[2021-01-04 07:47] LABS: ALBUMIN 1.5 g/dl (3.4-5.0); ANION GAP 23 MMOL/L (8-16); CO2 21 mmol/L (21-32); GLUCOSE,RANDOM 318 mg/dL (74-106); MAGNESIUM 2.3 mg/dL (1.8-2.4)
[2021-01-04 07:52] LABS: BILIRUBIN,TOTAL 2.2 mg/dL (0.2-1)
[2021-01-04 08:03] LABS: ALK PHOS 291 U/L (45-117); BLOOD UREA NITROGEN 170.7 mg/dL (7-18); PHOSPHOROUS 10.6 mg/dL (2.5-4.9); SGOT/AST 341 U/L (15-37); SGPT/ALT 188 U/L (13-61); TOT PROT 4.3 g/dl (6.4-8.2)
[2021-01-04 08:18] LABS: CALCIUM 5.3 mg/dL (8.5-10.1)
[2021-01-04] MEDS ORDERED: PROPOFOL 1,000,000 MCG/100 ML VIAL ONE (09:00)
[2021-01-04] MEDS: PANTOPRAZOLE SODIUM 40 MG VIAL IVPUSH SCH (09:35)
[2021-01-04] MEDS: DEXAMETHASONE SOD PHOSPHATE 10 MG/1 ML VIAL IVPUSH SCH (09:35)
[2021-01-04] MEDS: AMINO ACIDS/PROTEIN HYDROLYS 30 ML LIQUID.PKT PO SCH ×2 (09:36→17:16)
[2021-01-04] MEDS: SODIUM ZIRCONIUM CYCLOSILICATE (LOKELMA) 5 GM PACKET PO SCH (09:36)
[2021-01-04] MEDS: SEVELAMER CARBONATE 2.4 GM POWDER PACKET PO SCH ×3 (09:36→17:17)
[2021-01-04] MEDS: LEVOTHYROXINE NA 25 MCG TABLET (FP) PO SCH (09:36)
[2021-01-04 09:44] LABS: ANISOCYTOSIS 1+; MACROCYTOSIS 0; PLATELET ESTIMATE DECREASED
[2021-01-04 15:20] VITALS: TEMP 97.8
[2021-01-04 16:21] VITALS: PULSE 100
[2021-01-04 18:24] VITALS: BP 77/45
[2021-01-04] MEDS: PROPOFOL 1,000,000 MCG/100 ML VIAL IVPB SCH (19:06)
[2021-01-04] MEDS: FENTANYL NS IVPB 500 MCG/100 ML BAG IVPB SCH (19:07)
== END 2021-01-04 23:31 | disposition expired | DRG 207 ==
LOC: JER 10:21 → SUPCPDRO 10:21 → JERBED 14:18 → J4W 23:03 → JICU 12-30 07:05
PROVIDERS: ADMIT Internal Medicine; ATTEND Internal Medicine Pulmonary Disease
PROC: XW033H5 Introduction of Tocilizumab into Peripheral Vein, Percutaneous Approach, New Technology Group 5 (ICD-10-PCS; 2020-12-14)
PROC: XW033E5 Introduction of Remdesivir Anti-infective into Peripheral Vein, Percutaneous Approach, New Technology Group 5 (ICD-10-PCS; 2020-12-14)
PROC: XW13325 Transfusion of Convalescent Plasma (Nonautologous) into Peripheral Vein, Percutaneous Approach, New Technology Group 5 (ICD-10-PCS; 2020-12-14)
PROC: 5A1955Z Respiratory Ventilation, Greater than 96 Consecutive Hours (ICD-10-PCS; principal; 2020-12-30)
PROC: 0BH17EZ Insertion of Endotracheal Airway into Trachea, Via Natural or Artificial Opening (ICD-10-PCS; 2020-12-30)
PROC: 0DH67UZ Insertion of Feeding Device into Stomach, Via Natural or Artificial Opening (ICD-10-PCS; 2020-12-30)
PROC: 30233N1 Transfusion of Nonautologous Red Blood Cells into Peripheral Vein, Percutaneous Approach (ICD-10-PCS; 2021-01-01)
PROC: 30233R1 Transfusion of Nonautologous Platelets into Peripheral Vein, Percutaneous Approach (ICD-10-PCS; 2021-01-02)
DX: U07.1 COVID-19 (principal); J96.01 Acute respiratory failure with hypoxia; G93.41 Metabolic encephalopathy; G93.5 Compression of brain; A41.9 Sepsis, unspecified organism; J12.82 Pneumonia due to coronavirus disease 2019; R65.20 Severe sepsis without septic shock; N17.9 Acute kidney failure, unspecified; E87.0 Hyperosmolality and hypernatremia; K92.2 Gastrointestinal hemorrhage, unspecified; I69.354 Hemiplegia and hemiparesis following cerebral infarction affecting left non-dominant side; E87.2 Acidosis; N39.0 Urinary tract infection, site not specified; I24.8 Other forms of acute ischemic heart disease; I10 Essential (primary) hypertension; E03.9 Hypothyroidism, unspecified; D72.829 Elevated white blood cell count, unspecified; D69.6 Thrombocytopenia, unspecified; I46.9 Cardiac arrest, cause unspecified; E78.5 Hyperlipidemia, unspecified; D64.9 Anemia, unspecified; I95.9 Hypotension, unspecified; E66.9 Obesity, unspecified; Z68.35 Body mass index [BMI] 35.0-35.9, adult; M79.7 Fibromyalgia; E11.65 Type 2 diabetes mellitus with hyperglycemia; E87.5 Hyperkalemia
CPT/HCPCS: 31500; 36415; 36430; 36600; 71045-TC-FY; 76775-TC; 76856-TC; 80048; 80053; 81003; 82248; 82272; 82436; 82542; 82550; 82553; 82570; 82728; 82803; 82947; 82962; 83036; 83605; 83615; 83735; 84100; 84132; 84133; 84300; 84466; 84478; 84484; 85025; 85027; 85379; 85384; 85610; 85730; 86022; 86140; 86480; 86769; 86850; 86900; 86901; 86922; 87040; 87086; 87186; 87804; 93005; 93010; 93970-TC; 94002; 94660; 99285-25; C9399; C9803; J0131; J1100; J1644; J3262; P9017; P9034; P9038; P9058; U0003